=== PATIENT | female | born 1980 | race Caucasian/White ===

== ENCOUNTER → 2021-07-04 11:24 | Outpatient (BNVA) | payer BC, SELFPAY | PROVIDERS: Family Provider Nurse Practitioner Family; PCP Nurse Practitioner Family; Visit Provider Nurse Practitioner | DX: M19.031 Primary osteoarthritis, right wrist (principal) | CPT/HCPCS: 73110 ==

== ENCOUNTER → 2021-11-27 09:14 | Outpatient (BNVA) | payer MEDICAID, SELFPAY | PROVIDERS: Family Provider Nurse Practitioner Family; PCP Nurse Practitioner Family; Visit Provider Nurse Practitioner | DX: I10 Essential (primary) hypertension (principal); M19.90 Unspecified osteoarthritis, unspecified site; R91.1 Solitary pulmonary nodule; N28.9 Disorder of kidney and ureter, unspecified | CPT/HCPCS: 80053; 80061; 84443; 85025; 85651; 86140 ==

== ENCOUNTER → 2021-12-18 10:02 | Outpatient (BNVA) | payer MEDICAID, SELFPAY | PROVIDERS: Family Provider Nurse Practitioner Family; PCP Nurse Practitioner Family; Visit Provider Nurse Practitioner | DX: D64.9 Anemia, unspecified (principal); F41.8 Other specified anxiety disorders; G25.81 Restless legs syndrome; K21.9 Gastro-esophageal reflux disease without esophagitis; M54.16 Radiculopathy, lumbar region; I10 Essential (primary) hypertension | CPT/HCPCS: 82607; 83550; 85045 ==

== ENCOUNTER → 2022-01-10 09:26 | Outpatient (BNVA) | payer MEDICAID, SELFPAY | PROVIDERS: Family Provider Nurse Practitioner Family; PCP Nurse Practitioner Family; Visit Provider Urology | DX: N39.46 Mixed incontinence (principal); N28.9 Disorder of kidney and ureter, unspecified | CPT/HCPCS: 81003; 99203 ==

== ENCOUNTER → 2022-02-26 10:43 | Outpatient (BNVA) | payer MEDICAID, SELFPAY | PROVIDERS: Family Provider Nurse Practitioner Family; PCP Nurse Practitioner Family; Visit Provider Nurse Practitioner | DX: F41.8 Other specified anxiety disorders (principal); E61.1 Iron deficiency; K21.9 Gastro-esophageal reflux disease without esophagitis; G25.81 Restless legs syndrome; I10 Essential (primary) hypertension; M54.16 Radiculopathy, lumbar region; M19.90 Unspecified osteoarthritis, unspecified site; Z12.39 Encounter for other screening for malignant neoplasm of breast | CPT/HCPCS: 73630; 85651; 86140 ==

== ENCOUNTER 2022-03-14 11:20 | Outpatient (CLI) | payer MEDICAID, SELFPAY ==
--- NOTE | 2022-03-14 11:25 | MM_ITS ---
WS: [id number] Bilateral screening 3D tomosynthesis digital mammogram, 03/14/2022 Clinical Data: Z12.39 - Encounter for other screening for malignant neop... Comparison: None. Findings: The breast parenchymal pattern shows fat replacement. No spiculated masses or clustered calcification s are seen. There are no secondary signs of carcinoma. There is a mole marker on the right breast. MM/[place] [id number] Impression: 1. Negative bilateral mammogram no prior exam for review. 2. Recommend annual screening mammograms. BIRADS: 1-Negative FOLLOW UP: 1 Year Follow-up The CAD unloading checker was used.
== END 2022-03-14 11:21 | disposition home or self-care (01) ==
PROVIDERS: PCP Nurse Practitioner Family; Visit Provider Nurse Practitioner
DX: Z12.31 Encounter for screening mammogram for malignant neoplasm of breast (principal)
CPT/HCPCS: 77063; 77067

== ENCOUNTER 2022-03-18 13:16 | Outpatient (CLI) | payer MEDICAID, SELFPAY ==
--- NOTE | 2022-03-18 13:30 | CT_ITS ---
WS: [id number] CT CHEST WITH INTRAVENOUS CONTRAST HISTORY: R91.1 - Solitary pulmonary nodule TECHNIQUE: Contiguous 5 mm axial imaging performed on the thorax. Coronal and sagittal reformats are submitted. All CT scans at [facility] use at least one of these dose optimization techniques: automated exposure control; mA and/or kV adjustment per patient size (includes targeted exams where dose is matched to clinical indication); or iterative reconstruction. CONTRAST: Omnipaque 350; 95 mL IV. DLP: 699.56 mGy.cm COMPARISON: CT 11/15/2021 abdomen Lungs and central airway: Lungs are well-aerated. There is a single pulmonary nodule identified measu ring 5 mm. This nodule is noncalcified and abuts the major fissure. This is an intrapulmonary nodule which are typically benign. No additional nodule or mass. Pleura: Normal. No pleural effusion. Heart and pericardium: Normal size heart with no pericardial effusion. Mediastinum and prabha: No mediastinum or hilar adenopathy. Vessels: Normal size aortic and pulmonary artery. No coronary artery calcifications. Chest wall and lower neck: No soft tissue masses. Upper abdomen: Liver is moderately enlarged with hepatic steatosis. Spleen is incompletely visualized measures at least 12.8 cm in length. No adrenal mass. Osseous structures: Mild anterior wedging with Schmorl's node defect at T12. CT/CT chest w con* [id number] IMPRESSION: 1. LEFT perifissural nodule measures 5 mm. Thought to be a benign pulmonary ly mph node. 2. No additional nodule or mass. 3. Hepatic steatosis. 4. No adenopathy.
[2022-03-18] MEDS: iohexol 350 mg/mL 100 mL Btl IV (13:55)
== END 2022-03-18 13:17 | disposition home or self-care (01) ==
LOC: RAD 13:16
PROVIDERS: PCP Nurse Practitioner; Visit Provider Nurse Practitioner
DX: R91.1 Solitary pulmonary nodule (principal); N28.9 Disorder of kidney and ureter, unspecified; K76.0 Fatty (change of) liver, not elsewhere classified
CPT/HCPCS: 71260

== ENCOUNTER → 2022-04-04 11:55 | Outpatient (BNVA) | payer MEDICAID, SELFPAY | PROVIDERS: PCP Nurse Practitioner; Visit Provider Nurse Practitioner Family | DX: R10.9 Unspecified abdominal pain (principal); G89.29 Other chronic pain; K76.0 Fatty (change of) liver, not elsewhere classified; I10 Essential (primary) hypertension; M25.572 Pain in left ankle and joints of left foot; M19.072 Primary osteoarthritis, left ankle and foot; M25.472 Effusion, left ankle | CPT/HCPCS: 73610; 80048; 80076; 82607; 83036; 83735; 84443; 85025 ==

== ENCOUNTER → 2022-05-06 13:28 | Outpatient (BNVA) | payer MEDICAID, SELFPAY | PROVIDERS: PCP Nurse Practitioner; Visit Provider Podiatrist Foot & Ankle Surgery | DX: M72.2 Plantar fascial fibromatosis (principal); M21.6X1 Other acquired deformities of right foot; M21.6X2 Other acquired deformities of left foot; R60.9 Edema, unspecified | CPT/HCPCS: 73630 ==

== ENCOUNTER 2022-05-06 15:33 | Outpatient (CLI) | payer MEDICAID, SELFPAY | END 2022-05-06 15:34 | disposition home or self-care (01) | LOC: SPT 15:33 | PROVIDERS: PCP Nurse Practitioner; Visit Provider Podiatrist Foot & Ankle Surgery | DX: Z46.89 Encounter for fitting and adjustment of other specified devices (principal); M72.2 Plantar fascial fibromatosis | CPT/HCPCS: 97760; L4397 ==

== ENCOUNTER 2022-05-16 14:07 | Outpatient (CLI) | payer MEDICAID, SELFPAY ==
--- NOTE | 2022-05-16 14:21 | XR_ITS ---
WS: [email or web address] Exam: XR hip RT 2-3V wo/w pel* [id number] Date/Time of Exam: 05/16/2022 2:39 PM Reason For Exam: M25.551 - Pain in right hip Comparison 05/16/2019. No fracture or dislocation. Mild DJD of the acetabular rim. Normal soft tissues. XR/XR hip RT 2-3V wo/w pel* [id number] IMPRESSION: 1. Mild degenerative change of the acetabulum. 2. No fracture or other significant finding.
--- NOTE | 2022-05-16 14:21 | XR_ITS ---
WS: [email or web address] Exam: XR lumbar spine 2-3V* [id number] Date/Time of Exam: 05/16/2022 2:39 PM Reason For Exam: M54.50 - Low back pain, unspecified Comparison 11/24/2018. No acute fracture or dislocation. Old low-grade nondisplaced compression fractures of the upper plate of L2 and T12. Moderately advanced facet DJD at all levels. There is a grade 1 spondylolisthesis of L5 on S1 secondary to L5 pars defect. There is about 1 cm forward movement of L5. Degenerative disc c hange at L5-S1. DJD of the SI joints. Very slight degenerative retrolisthesis of L1 on L2. Mild spond ylosis. XR/XR lumbar spine 2-3V* [id number] IMPRESSION: 1. Old nondisplaced compression fractures at the upper plate of L2 and T12. 2. No acute fracture. 3. Grade 1 spondylolisthesis of L5 on S1 secondary to L5 pars defect. 4. Degenerative change at the L5-S1 disc. Facet DJD at all levels.
== END 2022-05-16 14:08 | disposition home or self-care (01) ==
LOC: RAD 14:09
PROVIDERS: PCP Nurse Practitioner; Visit Provider Nurse Practitioner Family
DX: M25.551 Pain in right hip (principal); S32.029A Unspecified fracture of second lumbar vertebra, initial encounter for closed fracture; S22.089A Unspecified fracture of T11-T12 vertebra, initial encounter for closed fracture; M43.15 Spondylolisthesis, thoracolumbar region; X58.XXXA Exposure to other specified factors, initial encounter
CPT/HCPCS: 72100; 73502

== ENCOUNTER 2022-05-20 09:19 | Outpatient (CLI) | payer MEDICAID, SELFPAY ==
--- NOTE | 2022-05-20 09:15 | US_ITS ---
WS: [email or web address] RENAL ULTRASOUND HISTORY: Renal Lesion COMPARISON: CT 11/17/2021 TECHNIQUE: 2-D and color Doppler imaging of the kidney submitted. Limited quality by body habitus. Right kidney: 11.8 cm x 6.8 cm x 6.1 cm. Normal echogenicity with no hydronephrosis or mass. Left kidney: 12.7 cm x 6.4 cm x 6.0 cm. Normal echogenicity with no hydronephrosis or mass. Previously described mass in the lower pole with calcification is not identified by ultrasound. Aorta: Not visualized. Urinary Bladder: Minimally distended. US/US renal BI* [id number] IMPRESSION: 1. No hydronephrosis or renal mass identified. 2. Previously described low-attenuation mass with peripheral calcification on the CT from 11/17/2021 is not identified by ultrasound. Probably due to body hab itus. Recommend follow-up renal mass CT protocol or MRI with and without contra st.
== END 2022-05-20 09:20 | disposition home or self-care (01) ==
PROVIDERS: PCP Nurse Practitioner; Visit Provider Urology
DX: N28.9 Disorder of kidney and ureter, unspecified (principal)
CPT/HCPCS: 76770

== ENCOUNTER 2022-05-20 13:16 | Outpatient (CLI) | payer MEDICAID, SELFPAY ==
[2022-05-20 13:48] LABS: Basophils # 0.1 10^3/uL (0.0-0.1); Basophils % 0.5 %; Eosinophils % 0.1 %; Hemoglobin 10.9 g/dL (11.5-15.3); Lymphocytes % 9.5 %; Mean Corpuscular HGB Conc 29.5 g/dL (30.0-36.0); Mean Corpuscular Hemoglobin 22.8 pg (28.0-34.0); Mean Corpuscular Volume 77.2 fl (81-99); Mean Platelet Volume 10.5 fL (7.4-10.4); Monocytes # 0.2 10^3/uL (0.2-0.9); Monocytes % 2.2 %; Neutrophils # 9.09 10^3/uL (1.8-7.7); Neutrophils % 86.7 %; Nucleated Red Blood Cells % 0 %; Platelet Count 376 10^3/cmm (130-400); Red Blood Count 4.79 10^6/uL (4.1-5.3); Red Cell Distribution Width 16.2 % (12.1-15.1); White Blood Count 10.5 10^3/uL (4.0-10.0)
[2022-05-20 13:57] LABS: Erythrocyte Sedimentation Rate 23 mm/hr (0-15)
[2022-05-20 14:06] LABS: Alanine Aminotransferase 10 U/L (0-33); Albumin Level 3.8 g/dL (3.5-5.2); Alkaline Phosphatase 115 U/L (35-105); Anion Gap 12.5 (5-19); Aspartate Amino Transferase 9 U/L (0-32); Blood Urea Nitrogen 12 mg/dL (6-20); C Reactive Protein 10.7 mg/L (0.0-4.9); Calcium 9.1 mg/dL (8.5-10.5); Carbon Dioxide 29 mmol/L (22-29); Chloride 101 mmol/L (98-107); Globulin 3.7 g/dL (1.3-4.6); Glomerular Filtration Rate 108.6 mL/min (90-130); Glucose 137 mg/dL (65-115); Osmolality Calculated 288 mOsm/kg (285-295); Potassium 4.5 mmol/L (3.5-5.1); Sodium 138 mmol/L (136-145); Total Bilirubin 0.4 mg/dL (0.15-1.2); Total Protein 7.5 g/dL (6.6-8.7)
== END 2022-05-20 13:17 | disposition home or self-care (01) ==
LOC: LAB 13:25
PROVIDERS: PCP Nurse Practitioner; Visit Provider Internal Medicine
DX: R79.82 Elevated C-reactive protein (CRP) (principal); Z79.899 Other long term (current) drug therapy
CPT/HCPCS: 36415; 80053; 85025; 85651; 86140

== ENCOUNTER → 2022-07-03 09:36 | Outpatient (BNVA) | payer MEDICAID, SELFPAY | PROVIDERS: PCP Nurse Practitioner; Referring Provider Nurse Practitioner; Visit Provider Physician Assistant | DX: M54.50 Low back pain, unspecified (principal) | CPT/HCPCS: 72120 ==

== ENCOUNTER 2022-07-28 14:11 | Outpatient (CLI) | payer MEDICAID, SELFPAY ==
--- NOTE | 2022-07-28 16:00 | MR_ITS ---
WS: [email or web address] MRI LUMBAR SPINE NONCONTRAST TECHNIQUE: Sagittal T1, T2 and STIR imaging. Axial T1 and T2 imaging. CLINICAL INFORMATION: M54.50 - Low back pain, unspecified COMPARISON: None. FINDINGS: Mild lumbar curve. Grade 1 anterolisthesis L5 on S1 measuring 7 mm.Chronic spondylolysis L5-S1. L1-L2: Mild annular bulging. Mild facet arthropathy. Mild RIGHT and no significant LEFT foraminal dave rowing. L2-L3: Mild annular bulging with mild central canal stenosis. Narrowing of the subarticular recess bi laterally. Moderate facet arthropathy. Mild RIGHT and no significant LEFT foraminal narrowing. L3-L4: Mild annular bulging with moderate central canal stenosis. Impingement traversing L4 nerve campbell ts bilaterally. Moderate to advanced facet arthropathy. Moderate RIGHT and mild LEFT foraminal narrow ing. L4-L5: Annular bulging with a small central protrusion. Moderate to severe central canal stenosis. Im pingement traversing L5 nerve roots bilaterally. Moderate facet arthropathy. Mild LEFT and no signifi cant RIGHT foraminal narrowing. L5-S1: Grade 1 anterolisthesis with spondylolysis. Mild disc bulging with osteophytic ridging. Modera te bilateral foraminal narrowing. Moderate facet arthropathy. Slight impingement on the traversing RI GHT S1 nerve root. Visualized pelvic bony structures: Normal. Paravertebral soft tissues: Normal. MR/MR lumbar spine wo con* [id number] IMPRESSION: 1. Mild lumbar curve. No acute compression. Grade 1 anterolisthesis L5 on S1 w ith chronic spondylolysis. 2. Moderate central canal stenosis L3-L4 and moderate to severe central canal stenosis L4-L5 with a small central protrusion L4-L5. Impingement traversing L5 nerve roots. 3. Disc osteophyte complex L5-S1 impinges the traversing RIGHT S1 nerve root i n the subarticular recess. Moderate bilateral foraminal narrowing at this level . 4. Mild central canal stenosis L2-L3. 5. Small foraminal protrusions L3-L4 with moderate RIGHT and mild LEFT foramin al narrowing. 6. Moderate facet arthropathy L2-L5.
== END 2022-07-28 14:12 | disposition home or self-care (01) ==
LOC: RAD 14:12
PROVIDERS: PCP Nurse Practitioner; Visit Provider Nurse Practitioner Family
DX: G89.29 Other chronic pain (principal); M54.50 Low back pain, unspecified; Z87.81 Personal history of (healed) traumatic fracture; Z09 Encounter for follow-up examination after completed treatment for conditions other than malignant neoplasm
CPT/HCPCS: 72148

== ENCOUNTER 2022-08-04 06:47 | Outpatient (CLI) | payer MEDICAID, SELFPAY ==
--- NOTE | 2022-08-04 07:15 | US_ITS ---
WS: [email or web address] Complete ABDOMINAL ULTRASOUND HISTORY: R10.9 - Unspecified abdominal pain COMPARISON: No similar studies. Liver: 16.5 cm in length. Diffuse mild coarse echotexture. No mass or bile duct dilatation. The entir e liver is not very well visualized due to attenuation. Portal Vein: Normal hepatopetal flow with monophasic waveform. Gallbladder: Normally distended with no gallstones, wall thickening or pericholecystic fluid. Pancreas: Obscured by bowel gas and body habitus. CBD: 0.7 cm. Right kidney: 12.4 cm x 6.6 cm x 5.7 cm. No mass, cortical thickening or hydronephrosis. Left kidney: 12.2 cm x 5.4 cm x 5.9 cm. Normal size kidney. Variable echogenicity within the lower p ole. Suspect calcification without shadowing. This corresponds to there is no solid mass identified. The area of an indeterminate lesion described on 11/17/2021 with calcification. Spleen: Top normal size measuring 13.2 cm in length. Abdominal aorta and IVC are within normal limits. No ascites. US/US abdomen complete* [id number] IMPRESSION: 1. Normal gallbladder. 2. Possible calcification lower pole RIGHT kidney. Previous the described mass with calcification noted on a prior CT from 11/15/2021 is still not very well v isualized by ultrasound. Consider further evaluation with renal CT protocol or renal MRI. 3. Hepatic steatosis.
== END 2022-08-04 06:48 | disposition home or self-care (01) ==
LOC: RAD 06:49
PROVIDERS: PCP Nurse Practitioner; Visit Provider Nurse Practitioner Family
DX: R10.9 Unspecified abdominal pain (principal); G89.29 Other chronic pain; K76.0 Fatty (change of) liver, not elsewhere classified
CPT/HCPCS: 76700

== ENCOUNTER 2022-08-06 06:58 | Outpatient (CLI) | payer MEDICAID, SELFPAY | END 2022-08-06 06:59 | disposition home or self-care (01) | LOC: RT 06:59 | PROVIDERS: PCP Nurse Practitioner; Visit Provider Internal Medicine Pulmonary Disease | DX: R91.1 Solitary pulmonary nodule (principal); J45.909 Unspecified asthma, uncomplicated | CPT/HCPCS: 94010; 94726; 94729 ==

== ENCOUNTER → 2022-08-11 16:56 | Outpatient (BNVA) | payer MEDICAID, SELFPAY | PROVIDERS: PCP Nurse Practitioner; Visit Provider Nurse Practitioner Family | DX: I10 Essential (primary) hypertension (principal); K76.0 Fatty (change of) liver, not elsewhere classified; F41.8 Other specified anxiety disorders; R79.82 Elevated C-reactive protein (CRP); R10.9 Unspecified abdominal pain; G89.29 Other chronic pain; R73.9 Hyperglycemia, unspecified; Z68.42 Body mass index [BMI] 45.0-49.9, adult; J45.909 Unspecified asthma, uncomplicated; U09.9 Post COVID-19 condition, unspecified; T78.40XA Allergy, unspecified, initial encounter; R91.1 Solitary pulmonary nodule | CPT/HCPCS: 80053; 80061; 82088; 82533; 83036; 83615; 84443 ==

== ENCOUNTER → 2022-09-09 15:32 | Outpatient (BNVA) | payer MEDICAID, SELFPAY | PROVIDERS: PCP Nurse Practitioner; Visit Provider Nurse Practitioner Family | DX: M25.561 Pain in right knee (principal); M79.604 Pain in right leg; W19.XXXA Unspecified fall, initial encounter | CPT/HCPCS: 73562; 73590 ==

== ENCOUNTER 2022-09-30 08:51 | Outpatient (CLI) | payer MEDICAID, SELFPAY ==
--- NOTE | 2022-09-30 09:15 | USCV_ITS ---
EspinosaSeptember Age: 42 Gender: F : 1980 Exam Date: 09/30/2022 09:11 Ordering Phys: Vreónica Adkins MD ([email or web address]) Technologist: [place] [facility] [place]: carotid occlusion Risk Factors: Previous Vascular Surgery: Right Brachial BP: / Left Brachial BP: / Right Left Velocity (cm/s) Spectral Plaque Velocity (cm/s) Spectral Plaque Syst/Diast Broadening Syst/Diast Broadening 102.50/25.40 Prox CCA 83.50 / 27.00 82.50/ 23.40 Mid CCA 89.60 / 25.10 76.90/ 25.30 Distal CCA 79.10 / 25.00 55.20/ 16.70 Prox ICA 86.90 / 25.60 52.30/ 19.60 Mid ICA 66.50 / 26.60 79.10/ 32.40 Distal ICA 82.80 / 35.30 84.40 ECA 103.20 0.77 ICA/CCA 0.97 Antegrade Vertebral Antegrade 59.00/ 28.00 cm/s 52.60/ 22.30 cm/s Tri Subclavian Tri 144.5 111.4 0 0 FINDINGS Comparison: none available. No significant elevation of systolic or diastolic velocities. Waveforms are normal. No significant amount of calcified plaque or intimal thickening identified. Antegrade vertebral arteries. CONCLUSIONS Normal carotid doppler ultrasound. Dr. Tess Bentley DO (Electronically Signed) Final Date: 30 September 2022 10:00 S
== END 2022-09-30 08:52 | disposition home or self-care (01) ==
LOC: RAD 08:54
PROVIDERS: PCP Nurse Practitioner Family; Visit Provider Internal Medicine Cardiovascular Disease
DX: I65.29 Occlusion and stenosis of unspecified carotid artery (principal)
CPT/HCPCS: 36415; 73560; 73565; 80048; 83880; 93880

== ENCOUNTER 2022-09-30 14:33 | Outpatient (CLI) | payer MEDICAID, SELFPAY | END 2022-09-30 14:34 | disposition home or self-care (01) | LOC: SPT 14:33 | PROVIDERS: PCP Nurse Practitioner Family; Visit Provider Nurse Practitioner Family | DX: Z46.89 Encounter for fitting and adjustment of other specified devices (principal); M25.561 Pain in right knee | CPT/HCPCS: 97760; L1812 ==

== ENCOUNTER 2022-10-06 08:23 | Outpatient (CLI) | payer MEDICAID, SELFPAY ==
--- NOTE | 2022-10-06 08:00 | USCV_ITS ---
Espinosaseptember Age: 42 Gender: F : 1980 Exam Date: 10/06/2022 09:04 Ordering Phys: Verónica Adkins MD ([email or web address]) Technologist: Jordan Culver Exam Location: [facility] [place] Indication: sob, leg swelling BP: 158 / 74 HR: 75 Rhythm: Sinus Technical Quality: Adequate MEASUREMENTS (Male / Female) Normal Values 2D ECHO LV Diastolic Diameter PLAX 5.1 cm 4.2 - 5.9 / 3.9 - 5.3 cm LV Systolic Diameter PLAX 3.5 cm IVS Diastolic Thickness 1.0 cm 0.6 - 1.0 / 0.6 - 0.9 cm IVS Systolic Thickness 1.3 cm LVPW Diastolic Thickness 1.2 cm 0.6 - 1.0 / 0.6 - 0.9 cm LVPW Systolic Thickness 1.7 cm LVOT Diameter 2.1 cm LV Ejection Fraction 2D Teich 57.1 % LV Ejection Fraction MOD 2C 65.4 % LV Ejection Fraction 2C AL 66.3 % LA Diameter 3.5 cm LA Width 3.2 cm LA Height 5.3 cm RA Width 3.7 cm RA Height 4.3 cm Aorta at Sinotubular Diameter 2.4 cm IVC Diameter 1.9 cm M-MODE Aortic Annulus Diameter 2.8 cm LA Ao Ratio MM 1.2 MV E Point Septal Separation 0.8 cm DOPPLER AV Peak Velocity 181.3 cm/s LVOT Peak Velocity 144.0 cm/s AV Area Cont Eq vti 2.8 cm squared AV Area Cont Eq pk 2.8 cm squared MV Peak Velocity 101.0 cm/s MV Area PHT 3.3 cm squared Mitral E to A Ratio 1.3 MV E' Velocity 52.0 cm/s Mitral E to MV E' Ratio 7.5 Mitral E to LV E' Lateral Ratio 6.3 Mitral E to LV E' Septal Ratio 9.4 TR Peak Velocity 473.5 cm/s TR Peak Gradient 89.7 mmHg TR Mean Velocity 356.3 cm/s TR Mean Gradient 53.9 mmHg TR Velocity Time Integral 117.3 cm Right Atrial Pressure 3.0 mmHg Pulmonary Artery Systolic Pressu 92.7 mmHg PV Peak Velocity 148.0 cm/s RV Acceleration Time 0.1 s RV Ejection Time 0.3 s RV AcT/ET 0.2 FINDINGS Left Ventricle Normal left ventricular size and systolic function, EF 67 %. No regional wall motion abnormalities. Mild left ventricular hypertrophy. Right Ventricle The right ventricle is normal in size and function. Right Atrium The right atrium is normal in size. Left Atrium The left atrium is normal in size. Mitral Valve Trace mitral valve regurgitation. Aortic Valve No gross abnormalities noted Tricuspid Valve Trace tricuspid valve regurgitation. PA pressure could not be calculated because of the poor Doppler signals Pulmonic Valve No gross abnormalities noted Pericardium Normal pericardium without effusion. Aorta Normal ascending aorta dimension. IVC Normal inferior vena cava. CONCLUSIONS Normal left ventricular size and systolic function, EF 67 %. No regional wall motion abnormalities. Trace mitral valve regurgitation. Trace tricuspid valve regurgitation. Mild left ventricular hypertrophy. PA pressure could not be calculated because of the poor Doppler signals. There is no pericardial effusion. There are no intracardiac masses. No similar previous studies are available for comparison Dr Verónica Adkins MD [facility] (Electronically Signed) Final Date: 09 October 2022 19:51 S
== END 2022-10-06 08:24 | disposition home or self-care (01) ==
PROVIDERS: PCP Nurse Practitioner Family; Visit Provider Internal Medicine Cardiovascular Disease
DX: R06.09 Other forms of dyspnea (principal); I51.7 Cardiomegaly
CPT/HCPCS: 93306

== ENCOUNTER 2022-10-21 11:45 | Outpatient (CLI) | payer MEDICAID, SELFPAY ==
--- NOTE | 2022-10-21 11:45 | MR_ITS ---
WS: [email or web address] MRI RIGHT KNEE HISTORY: Right knee pain chronic COMPARISON: Radiographs 09/30/2022 Anterior cruciate ligament: Ligament is intact but very thin. Posterior cruciate ligament: Intact. Medial collateral ligament: MCL is displaced from the joint line by the extruded meniscus. Small amou nt of adjacent edema but no tear. Posterior lateral corner structures: Intact. Medial menisci: Blunting and tear near the meniscal free edge. Abnormal signal predominantly along th e superior articular surface. Lateral meniscus: Intact. Normal signal, size and shape. Extensor mechanism: Distal quadriceps tendon and patellar tendons are intact. Fluid and soft tissue: Moderate to large joint effusion. There is soft tissue edema surrounding the k nee. Very tiny amount of fluid distending Enrique's cyst. Osseous and articular structures: Patellofemoral compartment: Marked narrowing of the patellofemoral joint space. There is a bipartite patella. There is slight lateral subluxation of the patella with enthesopathy. Moderate chondromalaci a. Medial compartment: Moderate narrowing of the medial compartment. Diffuse chondromalacia greatest inv olving the weightbearing surface of the femoral condyle. Small marginal osteophytes. Lateral compartment: Moderate narrowing lateral compartment with diffuse chondromalacia. There is a l arge amount of edema in the lateral femoral condyle extending into the metaphysis. No fracture. Charlene nal osteophytes from the tibial plateau and femoral condyle. MR/MR knee RT wo con* [id number] IMPRESSION: 1. Tricompartment advanced changes of osteoarthritis. More than expected for t his patient's age. 2. Tricompartment chondromalacia with joint space narrowing. 3. Large amount of marrow edema in the lateral femoral condyle extending into the metaphysis. 4. Moderate to large joint effusion. 5. Bipartite patella. Lateral subluxation of patella. 6. Suspect tear involving the posterior horn medial meniscus.
== END 2022-10-21 11:46 | disposition home or self-care (01) ==
LOC: RAD 12-23 09:09
PROVIDERS: PCP Nurse Practitioner Family; Visit Provider Nurse Practitioner Family
DX: M17.11 Unilateral primary osteoarthritis, right knee (principal); M25.461 Effusion, right knee; M25.761 Osteophyte, right knee; M94.261 Chondromalacia, right knee; Q74.1 Congenital malformation of knee; G89.29 Other chronic pain; M25.561 Pain in right knee
CPT/HCPCS: 73721

== ENCOUNTER 2022-11-13 09:30 | Outpatient (CLI) | payer MEDICAID, SELFPAY ==
[2022-11-13 09:58] VITALS: BMI 47.7
--- NOTE | 2022-11-13 10:02 | ECG_ITS ---
[facility] Test Date: 2022-11-13 Pat Name: Vilma Letcher Department: Room: Gender: Female [employer] Furnace Operator: Nayana Raymond : 1980 Requested By: Verónica Adkins Order Number: [id number] Farheen MD: Primo Cool M.D. Interpretive Statements NAME OF STUDY: LEXISCAN SESTAMIBI STRESS TEST INDICATION: [Chest Pain, ] Procedure: At the baseline, the blood pressure was 152/93 mmHg with a heart rate of 80 bpm. The electrocardiogram showed normal sinus rhythm, normal axis with normal ST and T's. The Lexiscan was infused over a period of 20 seconds. A total of 0.4 mg of Lexiscan was infused. The stress phase was continued for a total of 5 minutes. Heart rate was at the end of stress phase was 90 bpm and a blood pressure of 155/95 mmHg. The EKG at the peak infusion revealed normal sinus rhythm with no significant ST-T wave changes. Sestamibi was injected 20 seconds after the Lexiscan infusion. Blood pressure at the end of recovery phase was 156/99 mmHg with a heart rate of 88 bpm. Conclusion: 1. Normal EKG response to Lexiscan infusion 2. No Lexiscan induced chest pain or cardiac arrhythmia. 3. Normal blood pressure and heart rate response. 4. Sestamibi/sestamibi perfusion scan pending; see separate report. Electronically Signed On 11-15-2022 21:33:23 CDT by Primo Cool M.D. [id number]
--- NOTE | 2022-11-13 10:04 | NMCV_ITS ---
NM justen perf SPECT r/s* [id number] September Age: 42 Gender: F : 1980 Exam Date: 11/13/2022 11:04 Ordering Phys: Verónica Adkins MD ([email or web address]) Technologist: TINY Santiago Exam Location: [facility] Indications: HYPERTENSION STRESS TEST Please see separate stress test report [facility] for full findings IMAGE PROTOCOL Rest/Stress 1 Lexiscan Day Radiopharmaceutical Dose (mCi) Administration Site Administered by Rest: Tc-99m 11.0 IV TINY Cavanaugh Sestamibi Stress:Tc-99m 33.0 IV TINY Cavanaugh Sestamibi Rest: 13-Nov-2022 60 Discovery 630 Stress: 13-Nov-2022 30 Discovery 630 0.4mg Lexiscan. Images obtained in supine and prone position. SPECT RESULTS Technical Quality: Excellent Raw Data Analysis: Normal Image Corrections: No attenuation or motion correction applied Summed Stress Score: 2 Summed Rest Score: 2 Summed Difference Score: 2 PERFUSION FINDINGS Small area of slightly decreased tracer uptake in the apical inferior and LV apex. Some relative drills noted in this region however the polar maps did not reveal any significant reversibility FUNCTIONAL RESULTS (calculated via Gated SPECT) Stress Image LV EF (%): 62 Stress EDV (mL):123 TID: 1.01 Stress ESV (mL):47 FUNCTIONAL FINDINGS: Segmental wall motion analysis revealing no gross wall motion abnormalities IMPRESSIONS 1. Myocardial perfusion imaging revealing small area of decreased tracer uptake in the apical inferior and LV apex with some reversibility suggesting ischemia in the distribution of the right coronary artery. However because of the inconsistency with the polar map, the reliability is somewhat compromised 2. Normal LV ejection fraction 62%. 3. LV wall motion analysis revealing no gross wall motion abnormalities. 4. Normal LV volume . No similar previous studies are available for comparison Dr Verónica Adkins MD [facility] (Electronically Signed) Final Date: 14 Nov 2022 10:32 S
[2022-11-13] MEDS: regadenoson 0.4 Mg/5 ml Syringe IVP (11:42)
[2022-11-13 12:28] VITALS: BP 156/99; PULSE 88
== END 2022-11-13 09:31 | disposition home or self-care (01) ==
LOC: CDL 09:31
PROVIDERS: PCP Nurse Practitioner Family; Visit Provider Internal Medicine Cardiovascular Disease
DX: I77.1 Stricture of artery (principal)
CPT/HCPCS: 36415; 78452; 93017; 96374; A9500; J2785

== ENCOUNTER 2022-12-02 13:16 | Outpatient (CLI) | payer MEDICAID, SELFPAY ==
--- NOTE | 2022-12-02 13:23 | XRR_ITS ---
PROCEDURE INFORMATION: Exam: XR Left Hip Exam date and time: 12/02/2022 1:30 PM Age: 42 years old Clinical indication: Hip pain; Left hip; Additional info: Left hip pain TECHNIQUE: Imaging protocol: Radiologic exam of the left hip. Views: 2 or 3 views hip with pelvis when performed. COMPARISON: CT abdomen pelvis w con* [id number] 11/17/2021 4:46 PM FINDINGS: Bones/joints: Unremarkable. No acute fracture. Soft tissues: Unremarkable. XR/XR hip LT 2-3V wo/w pel* [id number] IMPRESSION: No acute findings.
== END 2022-12-02 13:17 | disposition home or self-care (01) ==
LOC: RAD 13:17
PROVIDERS: PCP Nurse Practitioner Family; Visit Provider Nurse Practitioner Family
DX: M16.12 Unilateral primary osteoarthritis, left hip (principal)
CPT/HCPCS: 73502

== ENCOUNTER 2022-12-23 12:12 | Outpatient (CLI) | payer MEDICAID, SELFPAY ==
--- NOTE | 2022-12-23 12:30 | USCV_ITS ---
JesúsSeptember Age: 42 Gender: F : 1980 Exam Date: 12/23/2022 13:16 Ordering Phys: Tara Mistry Technologist: CT [place] [facility] [place]: HISTORY: PROCEDURES: FINDINGS: The veins were found to be easily compressible with spontaneous blood flow. Non pulsatile flow pattern. No significant reflux were noted either in the deep or superficial veins CONCLUSIONS No evidence of DVT in the above-mentioned identifiable veins. No significant venous reflux in the veins tested above Dr Verónica Adkins MD [facility] (Electronically Signed) Final Date: 26 December 2022 14:02 S
== END 2022-12-23 12:13 | disposition home or self-care (01) ==
LOC: RAD 12:15
PROVIDERS: PCP Nurse Practitioner Family; Visit Provider Nurse Practitioner Family
DX: R60.9 Edema, unspecified (principal)
CPT/HCPCS: 93970

== ENCOUNTER → 2023-01-02 11:56 | Outpatient (BNVA) | payer MEDICAID, SELFPAY | PROVIDERS: PCP Nurse Practitioner Family; Visit Provider Nurse Practitioner Family | DX: E78.5 Hyperlipidemia, unspecified (principal); I10 Essential (primary) hypertension; F41.8 Other specified anxiety disorders; I27.20 Pulmonary hypertension, unspecified; R73.9 Hyperglycemia, unspecified; J30.2 Other seasonal allergic rhinitis; Z68.42 Body mass index [BMI] 45.0-49.9, adult; K21.9 Gastro-esophageal reflux disease without esophagitis; G25.81 Restless legs syndrome; R60.9 Edema, unspecified; M62.838 Other muscle spasm; E88.81 Metabolic syndrome and other insulin resistance | CPT/HCPCS: 80053; 80061; 83036 ==

== ENCOUNTER 2023-01-12 22:03 | Emergency (ER) | payer MEDICAID, SELFPAY ==
[2023-01-12 22:06] VITALS: BP 147/88; PULSE 100; RESP 14; TEMP 37.2; O2SAT 97; BMI 46.7
--- NOTE | 2023-01-12 22:16 | ED_ITS ---
HPI - General Adult General: Chief complaint: Headache Stated complaint: Cant Pee and Poop Time Seen by Provider: 01/12/23 22:13 History of Present Illness: Patient was brought in today for concerns of headache along with difficulty with urination and bowel movements. Patient also reported excessive drowsiness but since being placed on levocetirizine and Claritin-D for allergy symptoms. Review of patient's medications she also takes hydroxyzine routinely for anxiety. Patient appears nontoxic. Patient does take antihypertensives, medication for inflammatory arthritis, high cholesterol, mental health, GERD and chronic lung disease. Patient appears in mild to moderate pain. Associated symptoms: Reports headache(s) and nausea Review of Systems Const: Reports: fatigue ENMT: Reports: nasal discharge GI: Reports: nausea and constipation : Reports: difficulty voiding and urinary frequency Neuro: Reports: headache(s) PFSH ED PFSH: Medical History Acid reflux Anxiety with depression BMI 45.0-49.9, adult Chronic inflammatory arthritis Complex renal cyst Essential hypertension Lumbago Osteoarthritis Radiculopathy, lumbar region Restless leg Surgical History History of tubal ligation Family History Father , AT AGE 70 Cancer Chronic kidney disease (CKD) Diabetes Hypertension Mother Diabetes Lung disease Brother COPD (chronic obstructive pulmonary disease) Denies family history of Suicide Stroke Social History Smoking and tobacco status: never smoked Second hand smoke exposure: No Smoking risk assessment/counseling performed?: No Alcohol intake: current Alcohol intake frequency: holidays/special occasions only Desire information about alcohol rehabilitation?: No Counseling given: No Substance/Drug Use: unknown Desire information about substance/drug rehabilitation?: No Counseling given: No Adopted: No Caregiver/support person: No Lives independently: Yes Household members: none Housing: House Marital status: Number of children: 3 Highest education level completed: Some College, No Degree service: No Current occupational status: unemployed and disabled Pets and animals: Yes Do you think of yourself as: Straight/Heterosexual Current gender identity: Female Physical Exam Const: COMMON NORMALS: alert HENMT: COMMON NORMALS: normocephalic HEAD & SCALP: normocephalic NOSE: No nasal discharge present MOUTH: Normal oral and palatal mucosa present Neck/C-Spine: COMMON NORMALS: full ROM Resp: COMMON NORMALS: normal respiratory effort and clear to auscultation bilaterally AUSCULTATION: clear to auscultation bilaterally Cardio: COMMON NORMALS: regular rate and regular rhythm RATE: regular rate RHYTHM: regular rhythm GI: COMMON NORMALS: non-tender AUSCULTATION: Yes normoactive bowel sounds Extremity: COMMON NORMALS: no pedal edema Neuro: SENSORIUM/ORIENTATION: Yes alert Skin: COMMON NORMALS: turgor normal GENERAL SKIN EXAM: turgor normal Course Vital Signs: Vital signs: Vital Signs Temperature 98.9 F 01/12/23 22:06 Pulse Rate 100 01/12/23 22:06 Respiratory Rate 14 01/12/23 22:06 Blood Pressure 147/88 01/12/23 22:06 Pulse Oximetry 97 01/12/23 22:06 Oxygen Delivery Me thod Room Air 01/12/23 22:06 [facility] - General Adult Medical Decision Making 42-year-old female comes in today for complaints of excessive drowsiness, urinary difficulty, and constipation. On exam abdomen soft and nontender. Bowel sounds are positive. Patient does have some low back paraspinous muscle tenderness. Vital signs are normal. Differential diagnosis includes bowel obs truction, adverse drug effect, urinary tract infection, pneumonia, anemia, electrolyte imbalance. CBC was unremarkable, CMP was unremarkable. Chest x-ray and abdominal films noted no significant abnormality. Urinalysis had a large amount of white blood cells and positive nitrates. Patient was treated for headache with Reglan and Toradol with good relief. Patient be treated for urinary tract infection with Rocephin 1 g, and cephalexin 500 mg twice daily for 7 days. Recommending holding hydroxyzine while using cetirizine and levocetirizine for allergy symptoms. Strongly recommended only using hydroxyzine for breakthrough anxiety. Patient and family both reported understanding of care plan and need for follow-up or return to the ER. Lab Data 01/12/23 22:41 01/12/23 22:41 Radiology Impressions Chest/Abdomen X-ray 01/12/23 22:26 IMPRESSION: No acute findings. Laboratory Results WBC 10.0 10^3/uL (4.0-10.0) 01/12/23 22:41 RBC 4.80 10^6/uL (4.1-5.3) 01/12/23 22:41 Hgb 11.7 g/dL (11.5-15.3) 01/12/23 22:41 Hct 38.9 % (37.0-47.0) 01/12/23 22:41 MCV 81.0 fl (81-99) 01/12/23 22:41 MCH 24.4 pg (28.0-34.0) L 01/12/23 22:41 MCHC 30.1 g/dL (30.0-36.0) 01/12/23 22:41 RDW 16.6 % (12.1-15.1) H 01/12/23 22:41 Plt Count 242 10^3/cmm (130-400) 01/12/23 22:41 MPV 11.3 fL (7.4-10.4) H 01/12/23 22:41 Neut % (Auto) 82.7 % 01/12/23 22:41 Lymph % (Auto) 10.2 % 01/12/23 22:41 [place] % (Auto) 6.0 % 01/12/23 22:41 Eos % (Auto) 0.3 % 01/12/23 22:41 Baso % (Auto) 0.4 % 01/12/23 22:41 Neut # (Auto) 8.27 10^3/uL (1.8-7.7) H 01/12/23 22:41 Lymph # (Auto) 1.0 10^3/uL (0.8-4.8) 01/12/23 22:41 [place] # (Auto) 0.6 10^3/uL (0.2-0.9) 01/12/23 22:41 Eos # (Auto) 0.0 10^3/uL (0.0-0.8) 01/12/23 22:41 Baso # (Auto) 0.0 10^3/uL (0.0-0.1) 01/12/23 22:41 Nucleated RBC % (auto) 0 % 01/12/23 22:41 Nucleated RBCs # 0.0 /100WBC 01/12/23 22:41 Sodium 136 mmol/L (136-145) 01/12/23 22:41 Potassium 3.6 mmol/L (3.5-5.1) 01/12/23 22:41 Chloride 99 mmol/L (98-107) 01/12/23 22:41 Carbon Dioxide 29 mmol/L (22-29) 01/12/23 22:41 Anion Gap 11.6 (5-19) 01/12/23 22:41 BUN 7 mg/dL (6-20) 01/12/23 22:41 Creatinine 0.5 mg/dL (0.5-0.9) 01/12/23 22:41 GFR Calculation 134.0 mL/min (90-130) H 01/12/23 22:41 Glucose 106 mg/dL (65-115) 01/12/23 22:41 Calculated Osmolality 280 mOsm/kg (285-295) L 01/12/23 22:41 Calcium 8.5 mg/dL (8.5-10.5) 01/12/23 22:41 Total Bilirubin 0.3 mg/dL (0.15-1.2) 01/12/23 22:41 AST 10 U/L (0-32) 01/12/23 22:41 ALT 11 U/L (0-33) 01/12/23 22:41 Alkaline Phosphatase 94 U/L (35-105) 01/12/23 22:41 Total Protein 6.8 g/dL (6.6-8.7) 01/12/23 22:41 Albumin 3.6 g/dL (3.5-5.2) 01/12/23 22:41 Globulin 3.2 g/dL (1.3-4.6) 01/12/23 22:41 Lipase 17 U/L (13-60) 01/12/23 22:41 HCG, Qual Negative (Negative) 01/12/23 22:41 Urine Color Yellow (Yellow) 01/12/23 23:40 Urine Appearance Cloudy (CLEAR) A 01/12/23 23:40 Urine pH 6 (5-7) 01/12/23 23:40 Ur Specific [place] 1.010 (1.005-1.030) 01/12/23 23:40 Urine Protein 2+ (Negative) H 01/12/23 23:40 Urine Glucose (UA) Norm (Normal) 01/12/23 23:40 Urine Ketones Negative (Negative) 01/12/23 23:40 Urine Blood 3+ (Negative) H 01/12/23 23:40 Urine Nitrate Positive (Negative) H 01/12/23 23:40 Urine Bilirubin Neg (Negative) 01/12/23 23:40 Urine Urobilinogen 1 mg/dL (Negative) H 01/12/23 23:40 Ur Leukocyte Esterase 2+ (Negative) H 01/12/23 23:40 Urine RBC 40-50 /hpf (0-2) H 01/12/23 23:40 Urine WBC >100 /hpf (0-5) H 01/12/23 23:40 Ur Squamous Epith Cells 0-4 /hpf (0-5) H 01/12/23 23:40 Amorphous Sediment Not Reportable 01/12/23 23:40 Urine Bacteria 3+ /hpf (NONE) H 01/12/23 23:40 Discharge Plan Discharge Patient Disposition: Home Clinical Impression: UTI (urinary tract infection) due to Enterococcus Condition: Stable Prescriptions: New cephalexin 500 mg capsule 500 mg PO BID 7 Days Qty: 14 0RF No Action Saccharomyces boulardii [Daily Probiotic (S. boulardii)] 250 mg capsule 250 mg PO BID prenat.vits,briseida,eof-suin-wnomi Tablet 1 tab PO DAILY 90 Days Qty: 90 0RF ketorolac 10 mg tablet 10 mg PO QID PRN (Reason: pain) 5 Days Qty: 20 0RF Claritin-D 12 Hour 5-120 mg tablet extended release 12 hr 1 tab PO Q12H PRN (Reason: allergy symptoms) Qty: 20 0RF levocetirizine [Xyzal] 5 mg tablet 5 mg PO DAILY 90 Days Qty: 90 1RF Contrave 8-90 mg tablet extended release 2 tab PO BID 30 Days Qty: 120 3RF pantoprazole 20 mg tablet,delayed release (DR/EC) 20 mg PO DAILY Qty: 30 2RF ropinirole 2 mg tablet 2 mg PO DAILY 30 Days Qty: 30 2RF sertraline 100 mg tablet 100 mg PO DAILY Qty: 30 2RF simvastatin 20 mg tablet 20 mg PO .QHS 30 Days Qty: 30 6RF spironolactone 25 mg tablet 25 mg PO DAILY 30 Days Qty: 30 3RF ondansetron 4 mg tablet,disintegrating 4 mg PO Q8H PRN (Reason: nausea and vomiting) (DME) Night Splints See Rx Instructions .Route .MEDSUPPLY Qty: 2 0RF Rx Instructions: As directed albuterol sulfate [Ventolin HFA] 90 mcg/actuation HFA aerosol inhaler 2 puff inhalation 6XD PRN (Reason: shortness of breath or wheezing) Qty: 8.5 8RF budesonide-formoterol [Symbicort] 80-4.5 mcg/actuation HFA aerosol inhaler 1 puff inhalation BID valsartan-hydrochlorothiazide [Diovan HCT] 160-25 mg tablet 1 tab PO BID Qty: 180 2RF amlodipine 5 mg tablet 10 mg PO DAILY Qty: 60 5RF Rx Instructions: If blood pressure is less than 120 systolic, hold amlodipine (DME) HINGED KNEE BRACE See Rx Instructions .Route .MEDSUPPLY Qty: 1 0RF Rx Instructions: As directed hydroxychloroquine 200 mg tablet 200 mg PO BID Qty: 60 3RF prednisone 5 mg tablet See Rx Instructions PO DAILY Qty: 30 0RF Rx Instructions: 1-2 tablet prn orally daily; diclofenac sodium [Arthritis Pain (diclofenac)] 1 % gel 2 g topical QID Qty: 100 0RF Rx Instructions: apply to single elbow, wrist or hand; for hand includes palm/fingers/back of hand (DME) intraoperative Neuromonitoring See Rx Instructions .Route .MEDSUPPLY Qty: 1 0RF Rx Instructions: As directed hydroxyzine pamoate 25 mg capsule 25 mg PO TID Qty: 90 2RF ferrous gluconate 324 mg (38 mg iron) tablet 324 mg PO BID Qty: 60 2RF isosorbide mononitrate 30 mg tablet extended release 24 hr 30 mg PO DAILY Qty: 30 3RF leflunomide 10 mg tablet 10 mg PO DAILY Qty: 30 2RF Discharge Orders: Discharge ED (Routine); Ordered 01/13/23 Ordered By: Marcell Carlisle Referrals: Raquel Banegas NP [Primary Care Provider] - Discharge Diet: Usual diet Discharge Activity: Increase activity as tolerated Patient Instructions: Urinary Tract Infection in Women (ED) Activity Restrictions/Additional Instructions: Hold hydroxyzine for the next 3 to 4 days to help with somnolence, excessive drowsiness, and only use it if needed for anxiety. Continue with Claritin and levocetirizine as prescribed for her allergy symptoms. Use antibiotic as directed for urinary tract infection. Follow-up with primary care for further instructions. Return to ED for new concerns. Coding Level of Care Code ED Obstetrician Gynecologist for Radha Chatterjee
--- NOTE | 2023-01-12 22:26 | XRR_ITS ---
PROCEDURE INFORMATION: Exam: XR Abdomen Exam date and time: 01/12/2023 10:44 PM Age: 42 years old Clinical indication: Constipation and other: Trouble urinating; Prior surgery; Surgery date: 6+ months; Surgery type: Tubal TECHNIQUE: Imaging protocol: Radiologic exam of the abdomen. Views: 2 Views. Upright and supine views. COMPARISON: CT abdomen pelvis w con* [id number] 11/17/2021 4:46 PM FINDINGS: Gastrointestinal tract: Normal. No bowel dilation. Intraperitoneal space: Normal. No free air. Bones/joints: Unremarkable for age. XR/XR acute abdomen series [id number] IMPRESSION: No acute findings.
[2023-01-12 22:52] LABS: Basophils % 0.4 %; Eosinophils % 0.3 %; Hematocrit 38.9 % (37.0-47.0); Hemoglobin 11.7 g/dL (11.5-15.3); Lymphocytes % 10.2 %; Mean Corpuscular HGB Conc 30.1 g/dL (30.0-36.0); Mean Corpuscular Hemoglobin 24.4 pg (28.0-34.0); Mean Platelet Volume 11.3 fL (7.4-10.4); Monocytes # 0.6 10^3/uL (0.2-0.9); Neutrophils # 8.27 10^3/uL (1.8-7.7); Neutrophils % 82.7 %; Nucleated Red Blood Cells % 0 %; Platelet Count 242 10^3/cmm (130-400); Red Cell Distribution Width 16.6 % (12.1-15.1)
[2023-01-12] MEDS: ketorolac 30 mg/mL INJ 15 MG IVP (22:55)
[2023-01-12] MEDS: metoclopramide 5 mg/mL SDV 2 mL 10 MG IVP (22:55)
[2023-01-12 23:07] LABS: HCG, Serum Qual Negative (Negative)
[2023-01-12 23:12] VITALS: BP 140/82; PULSE 98; O2SAT 100
[2023-01-12 23:13] LABS: Alanine Aminotransferase 11 U/L (0-33); Albumin Level 3.6 g/dL (3.5-5.2); Alkaline Phosphatase 94 U/L (35-105); Anion Gap 11.6 (5-19); Aspartate Amino Transferase 10 U/L (0-32); Blood Urea Nitrogen 7 mg/dL (6-20); Calcium 8.5 mg/dL (8.5-10.5); Carbon Dioxide 29 mmol/L (22-29); Chloride 99 mmol/L (98-107); Globulin 3.2 g/dL (1.3-4.6); Glucose 106 mg/dL (65-115); Lipase 17 U/L (13-60); Osmolality Calculated 280 mOsm/kg (285-295); Potassium 3.6 mmol/L (3.5-5.1); Sodium 136 mmol/L (136-145); Total Bilirubin 0.3 mg/dL (0.15-1.2); Total Protein 6.8 g/dL (6.6-8.7)
[2023-01-12 23:56] LABS: Add Urine Microscopic? YES; Bilirubin Urine Neg (Negative); Blood Urine 3+ (Negative); Glucose Urine UA Norm (Normal); Ketones Urine Negative (Negative); Leukocyte Esterase Urine 2+ (Negative); Nitrate Urine Positive (Negative); Protein Urine 2+ (Negative); Urine Appearance Cloudy (CLEAR); Urine Color Yellow (Yellow); Urobilinogen Urine 1 mg/dL (Negative); pH Urine 6 (5-7)
[2023-01-12 23:57] LABS: Add Urine Culture? Yes; Bacteria Urine 3+ /hpf; RBC Urine 40-50 /hpf (0-2); Squamous Epithelial Cell Urine 0-4 /hpf (0-5); WBC Urine >100 /hpf (0-5)
[2023-01-13 00:12] VITALS: BP 122/54; PULSE 90; RESP 18; O2SAT 99
[2023-01-13] MEDS: cefTRIAXone 1,000 MG in sodium chloride 0.9% (plus) 50 ML 100 MG IV (00:13)
[2023-01-13 00:40] VITALS: BP 126/65; PULSE 89; RESP 14; O2SAT 96
== END 2023-01-13 00:44 | disposition home or self-care (01) ==
PROVIDERS: Emergency Provider Nurse Practitioner Family; PCP Nurse Practitioner Family
DX: N39.0 Urinary tract infection, site not specified (principal); B95.2 Enterococcus as the cause of diseases classified elsewhere; I10 Essential (primary) hypertension
CPT/HCPCS: 36415; 51798; 74022; 80053; 81001; 83690; 84703; 85025; 87077; 87086; 87186; 96365; 96375; 99284; J0696; J1885; J2765

== ENCOUNTER → 2023-01-20 11:57 | Outpatient (BNVA) | payer MEDICAID, SELFPAY | PROVIDERS: PCP Nurse Practitioner Family; Visit Provider Nurse Practitioner Family | DX: N39.0 Urinary tract infection, site not specified (principal); B95.2 Enterococcus as the cause of diseases classified elsewhere; M79.89 Other specified soft tissue disorders; E66.01 Morbid (severe) obesity due to excess calories; Z68.42 Body mass index [BMI] 45.0-49.9, adult; N39.3 Stress incontinence (female) (male); R60.9 Edema, unspecified; H92.09 Otalgia, unspecified ear; G89.29 Other chronic pain; D50.9 Iron deficiency anemia, unspecified; I10 Essential (primary) hypertension; E61.1 Iron deficiency; R53.83 Other fatigue | CPT/HCPCS: 80053; 82607; 82746; 83550 ==

== ENCOUNTER → 2023-04-01 14:59 | Outpatient (BNVA) | payer MEDICAID, SELFPAY | PROVIDERS: PCP Nurse Practitioner Family; Visit Provider Nurse Practitioner Family | DX: E78.5 Hyperlipidemia, unspecified (principal); R73.9 Hyperglycemia, unspecified; F41.8 Other specified anxiety disorders; I10 Essential (primary) hypertension; K04.7 Periapical abscess without sinus; M19.90 Unspecified osteoarthritis, unspecified site; N39.3 Stress incontinence (female) (male); K21.9 Gastro-esophageal reflux disease without esophagitis; G25.81 Restless legs syndrome; M79.89 Other specified soft tissue disorders; J30.2 Other seasonal allergic rhinitis; M47.816 Spondylosis without myelopathy or radiculopathy, lumbar region; E66.01 Morbid (severe) obesity due to excess calories; Z68.42 Body mass index [BMI] 45.0-49.9, adult; N39.46 Mixed incontinence | CPT/HCPCS: 80053; 80061; 82785; 86003 ==

== ENCOUNTER 2023-05-02 14:41 | Emergency (ER) | payer MEDICAID, SELFPAY ==
[2023-05-02 14:52] VITALS: BP 138/92; PULSE 82; RESP 15; TEMP 36.7; O2SAT 97
--- NOTE | 2023-05-02 15:15 | ED_ITS ---
Documented by User: Russ Arredondo MD 05/03/23 00:29 HPI - Abdominal Pain General: Chief Complaint: Abdominal Pain Stated Complaint: abd pain, loose black stool, possible MHE Time Seen by Provider: 05/02/23 15:15 History of Present Illness: 43-year-old female presents emergency department complaints of generalized abdominal pain for the previous 3 to 4 days. She states she is also had a cough for many many years and has had COVID 2 times. She states over the previous 4 days she has had soft stool and bowel movements. She states her pain is vague and she is unable to describe it she states that she currently has 3-4 out of 10 generalized pain. She denies vomiting but does endorse nausea. She states she has been feeling like she has had increased fatigue and malaise over the same duration of time and she states the last time she felt like this she had a urinary tract infection. Associated Symptoms: Reports diarrhea and nausea Review of Systems GI: Reports: abdominal pain, nausea and diarrhea [facility] ED PFSH: Medical History Acid reflux Anxiety with depression BMI 45.0-49.9, adult Chronic inflammatory arthritis Complex renal cyst Essential hypertension Lumbago Osteoarthritis Radiculopathy, lumbar region Restless leg Surgical History History of tubal ligation Family History Father , AT AGE 70 Cancer Chronic kidney disease (CKD) Diabetes Hypertension Mother Diabetes Lung disease Brother COPD (chronic obstructive pulmonary disease) Denies family history of Suicide Stroke Social History Smoking and tobacco/nicotine status: never used tobacco/nicotine Second hand smoke exposure: No Alcohol intake: current Alcohol intake frequency: holidays/special occasions only Substance/Drug Use: unknown Adopted: No Caregiver/support person: No Lives independently: Yes Household members: none Housing: House Marital status: Number of children: 3 Highest education level completed: Some College, No Degree service: No Current occupational status: unemployed and disabled Pets and animals: Yes Do you think of yourself as: Straight/Heterosexual Current gender identity: Female Physical Exam Narrative: EXAM NARRATIVE: Constitutional: the patient appeared well nourished and normally developed. Vital signs as documented. HENMT: Head exam is unremarkable. Neck is without jugular venous distension, thyromegaly, or carotid bruits. Moya tid upstrokes are brisk bilaterally. Eye: No scleral icterus or corneal arcus noted Resp: Lungs are clear to auscultation and percussion. Cardio: Cardiac exam reveals the PMI to be normally sized and situated. Rhythm is regular. First and second heart sounds normal. No murmurs, rubs or gallops. GI: Abdominal exam reveals normal bowel sounds, no masses, no organomegaly and no aortic enlargement. Soft, nontender to palpation. No obvious palpable masses noted. No hepatomegaly appreciated. Extremity: Extremities are non-edematous and both femoral and pedal pulses are normal. Moves all extremities well, she has sensation in all extremities. Neuro: Alert and oriented x4, person, place, time and situation. Cranial nerves II through XII are grossly intact, there is no focal neurological deficits that I can appreciate at present. Motor strength in the upper and lower extremities are equal and bilateral 5/5. Psych: Cooperative, calm, normal thought process, appropriate judgment. Skin: No lesions, rashes. Course Vital Signs: Vital signs: Vital Signs Temperature 98.1 F 05/02/23 14:52 Pulse Rate 76 05/02/23 18:06 Respiratory Rate 37 H 05/02/23 18:06 Blood Pressure 127/66 05/02/23 18:06 Pulse Oximetry 97 05/02/23 18:06 Oxygen Delivery Me thod Room Air 05/02/23 18:06 MDM - Abdominal Pain Medical Decision Making Physical exam completed and documented, laboratory evaluation obtained I suspect most likely this is a gastroenteritis given her vague reports of nausea vomiting abdominal pain. I will obtain a CBC, CMP urinalysis influenza a and B screen as well as a COVID 19 screen. Medical Records I reviewed the patient's medical records. Lab Data I reviewed the patient's lab results. 05/02/23 15:45 05/02/23 15:45 Labs/Radiology: Laboratory Results WBC 8.50 10^3/uL (3.29-11.43) 05/02/23 15:45 RBC 5.27 10^6/uL (3.85-5.65) 05/02/23 15:45 Hgb 13.90 g/dL (11.27-16.99) 05/02/23 15:45 Hct 45.8 % (36-47) 05/02/23 15:45 MCV 86.9 fl (85-98) 05/02/23 15:45 MCH 26.4 pg (27-33) L 05/02/23 15:45 MCHC 30.3 g/dL (30-55) 05/02/23 15:45 RDW 15.6 % (12.1-15.1) H 05/02/23 15:45 Plt Count 237 10^3/cmm (157-399) 05/02/23 15:45 MPV 11.3 fL (7.4-10.4) H 05/02/23 15:45 Neut % (Auto) 78.0 % 05/02/23 15:45 Lymph % (Auto) 14.5 % 05/02/23 15:45 Howell % (Auto) 5.4 % 05/02/23 15:45 Eos % (Auto) 1.1 % 05/02/23 15:45 Baso % (Auto) 0.6 % 05/02/23 15:45 Neut # (Auto) 6.64 10^3/uL (1.8-7.7) 05/02/23 15:45 Lymph # (Auto) 1.2 10^3/uL (0.8-4.8) 05/02/23 15:45 Howell # (Auto) 0.5 10^3/uL (0.2-0.9) 05/02/23 15:45 Eos # (Auto) 0.1 10^3/uL (0.0-0.8) 05/02/23 15:45 Baso # (Auto) 0.1 10^3/uL (0.0-0.1) 05/02/23 15:45 Nucleated RBC % (auto) 0 % 05/02/23 15:45 Nucleated RBCs # 0.0 /100WBC 05/02/23 15:45 Sodium 140 mmol/L (136-145) 05/02/23 15:45 Potassium 3.7 mmol/L (3.5-5.1) 05/02/23 15:45 Chloride 104 mmol/L (98-107) 05/02/23 15:45 Carbon Dioxide 27 mmol/L (22-29) 05/02/23 15:45 Anion Gap 12.7 (5-19) 05/02/23 15:45 BUN 6 mg/dL (6-20) 05/02/23 15:45 Creatinine 0.5 mg/dL (0.5-0.9) 05/02/23 15:45 GFR Calculation 133.4 mL/min (90-130) H 05/02/23 15:45 Glucose 114 mg/dL (65-115) 05/02/23 15:45 Calculated Osmolality 288 mOsm/kg (285-295) 05/02/23 15:45 Calcium 9.3 mg/dL (8.5-10.5) 05/02/23 15:45 Total Bilirubin 0.2 mg/dL (0.15-1.2) 05/02/23 15:45 AST 11 U/L (0-32) 05/02/23 15:45 ALT 13 U/L (0-33) 05/02/23 15:45 Alkaline Phosphatase 102 U/L (35-105) 05/02/23 15:45 Total Protein 7.1 g/dL (6.6-8.7) 05/02/23 15:45 Albumin 3.9 g/dL (3.5-5.2) 05/02/23 15:45 Globulin 3.2 g/dL (1.3-4.6) 05/02/23 15:45 Lipase 19 U/L (13-60) 05/02/23 15:45 HCG, Qual Negative (Negative) 05/02/23 16:05 Urine Color Dark yellow (Yellow) 05/02/23 16:05 Urine Appearance Clear (CLEAR) 05/02/23 16:05 Urine pH 5 (5-7) 05/02/23 16:05 Ur Specific [place]burn 1.025 (1.005-1.030) 05/02/23 16:05 Urine Protein Neg (Negative) 05/02/23 16:05 Urine Glucose (UA) Norm (Normal) 05/02/23 16:05 Urine Ketones Negative (Negative) 05/02/23 16:05 Urine Blood Neg (Negative) 05/02/23 16:05 Urine Nitrate Negative (Negative) 05/02/23 16:05 Urine Bilirubin Neg (Negative) 05/02/23 16:05 Urine Urobilinogen Norm mg/dL (Negative) 05/02/23 16:05 Ur Leukocyte Esterase Negative (Negative) 05/02/23 16:05 Influenza Type A Ag negative (Negative) 05/02/23 16:16 Influenza Type B Ag negative (Negative) 05/02/23 16:16 SARS-CoV-2 Ag (Rapid) negative (Negative) 05/02/23 16:16 No radiology studies performed this visit Discharge Plan Discharge Patient Disposition: Home Clinical Impression: Abdominal pain, Viral gastroenteritis Condition: Stable Prescriptions: No Action Saccharomyces boulardii [Daily Probiotic (S. boulardii)] 250 mg capsule 250 mg PO BID topiramate [Topamax] 25 mg tablet 25 mg PO BID 90 Days Qty: 180 0RF Claritin-D 12 Hour 5-120 mg tablet extended release 12 hr 1 tab PO Q12H PRN (Reason: allergy symptoms) Qty: 20 0RF hydroxyzine pamoate 25 mg capsule 25 mg PO TID Qty: 90 2RF oxybutynin chloride 5 mg tablet 5 mg PO BID 30 Days Qty: 60 3RF pantoprazole 20 mg tablet,delayed release (DR/EC) 20 mg PO DAILY Qty: 30 3RF simvastatin 20 mg tablet 20 mg PO .QHS 30 Days Qty: 30 3RF spironolactone 25 mg tablet 25 mg PO BID 30 Days Qty: 60 3RF (DME) Night Splints See Rx Instructions .Route .MEDSUPPLY Qty: 2 0RF Rx Instructions: As directed albuterol sulfate [Ventolin HFA] 90 mcg/actuation HFA aerosol inhaler 2 puff inhalation 6XD PRN (Reason: shortness of breath or wheezing) Qty: 8.5 8RF amlodipine 5 mg tablet 10 mg PO DAILY Qty: 60 5RF Rx Instructions: If blood pressure is less than 120 systolic, hold amlodipine (DME) HINGED KNEE BRACE See Rx Instructions .Route .MEDSUPPLY Qty: 1 0RF Rx Instructions: As directed nitroglycerin 0.4 mg tablet, sublingual 0.4 mg sublingual Q5M PRN (Reason: chest pain) 30 Days Qty: 30 3RF Rx Instructions: until response; do not exceed 3 doses per episode leflunomide 20 mg tablet 20 mg PO DAILY Qty: 30 2RF hydroxychloroquine 200 mg tablet 200 mg PO BID Qty: 60 2RF diclofenac sodium [Arthritis Pain (diclofenac)] 1 % gel 2 g topical QID Qty: 100 0RF Rx Instructions: apply to single elbow, wrist or hand; for hand includes palm/fingers/back of hand (DME) intraoperative Neuromonitoring See Rx Instructions .Route .MEDSUPPLY Qty: 1 0RF Rx Instructions: As directed ferrous gluconate 324 mg (38 mg iron) tablet 324 mg PO BID Qty: 60 2RF bupropion HCl 150 mg tablet extended release 24 hr 150 mg PO DAILY 30 Days Qty: 30 2RF Hair,Skin and Nails Tablet 1 tab PO DAILY 28 mg iron- 800 mcg Tablet 1 tab PO DAILY isosorbide mononitrate 30 mg tablet extended release 24 hr 30 mg PO DAILY sertraline 100 mg tablet 100 mg PO DAILY prednisone 5 mg tablet 5 - 10 mg PO DAILY PRN (Reason: Shortness Of Breath) ropinirole 2 mg tablet 2 mg PO DAILY valsartan-hydrochlorothiazide 160-25 mg tablet 1 tab PO DAILY Symbicort 160-4.5 mcg/actuation HFA aerosol inhaler 2 inh inhalation Q12H Discharge Orders: Discharge ED (Routine); Ordered 05/02/23 Ordered By: Russ Arredondo Referrals: Raquel Banegas, PONDMAN [Primary Care Provider] - Discharge Diet: Advance as tolerated Discharge Activity: Resume usual activity Patient Instructions: Abdominal Pain (ED), Opioid Safety, Pain Management Activity Restrictions/Additional Instructions: Activity Restrictions/Additional Instructions: Thank you for choosing [facility] for your healthcare needs today. Please realize that you were seen in the Emergency Department and that we are providing you with an emergency medical screening exam and this may not be complete and all inclusive of all the testing and or medical work-up that you may need to determine your ailment or severity of your illness. It is very important that you follow-up as instructed with your Primary care provider or Specialist for additional evaluation and to discuss your medical treatment plan. You may return to the Emergency Department should you have concerns or if your condition changes or worsens in any way. Coding Level of Care Code ED Abrasive Water Jet Cutter Operator for Chg Fwd Documented by User: Tom Zazueta DO 05/03/23 06:53 HPI - Abdominal Pain General: Chief Complaint: Abdominal Pain Stated Complaint: abd pain, loose black stool, possible MHE Time Seen by Provider: 05/02/23 15:15 Source: patient Mode of arrival: ambulatory History of Present Illness: MD elicited complaint: abdominal pain PFSH ED PFSH: Medical History Acid reflux Anxiety with depression BMI 45.0-49.9, adult Chronic inflammatory arthritis Complex renal cyst Essential hypertension Lumbago Osteoarthritis Radiculopathy, lumbar region Restless leg Surgical History History of tubal ligation Family History Father , AT AGE 70 Cancer Chronic kidney disease (CKD) Diabetes Hypertension Mother Diabetes Lung disease Brother COPD (chronic obstructive pulmonary disease) Denies family history of Suicide Stroke Social History Smoking and tobacco/nicotine status: never used tobacco/nicotine Second hand smoke exposure: No Alcohol intake: current Alcohol intake frequency: holidays/special occasions only Substance/Drug Use: unknown Adopted: No Caregiver/support person: No Lives independently: Yes Household members: none Housing: House Marital status: Number of children: 3 Highest education level completed: Some College, No Degree service: No Current occupational status: unemployed and disabled Pets and animals: Yes Do you think of yourself as: Straight/Heterosexual Current gender identity: Female Course Vital Signs: Vital signs: Vital Signs Temperature 98.1 F 05/02/23 14:52 Pulse Rate 76 05/02/23 18:06 Respiratory Rate 37 H 05/02/23 18:06 Blood Pressure 127/66 05/02/23 18:06 Pulse Oximetry 97 05/02/23 18:06 Oxygen Delivery Me thod Room Air 05/02/23 18:06 MDM - Abdominal Pain Lab Data 05/02/23 15:45 05/02/23 15:45 Labs/Radiology: Laboratory Results WBC 8.50 10^3/uL (3.29-11.43) 05/02/23 15:45 RBC 5.27 10^6/uL (3.85-5.65) 05/02/23 15:45 Hgb 13.90 g/dL (11.27-16.99) 05/02/23 15:45 Hct 45.8 % (36-47) 05/02/23 15:45 MCV 86.9 fl (85-98) 05/02/23 15:45 MCH 26.4 pg (27-33) L 05/02/23 15:45 MCHC 30.3 g/dL (30-55) 05/02/23 15:45 RDW 15.6 % (12.1-15.1) H 05/02/23 15:45 Plt Count 237 10^3/cmm (157-399) 05/02/23 15:45 MPV 11.3 fL (7.4-10.4) H 05/02/23 15:45 Neut % (Auto) 78.0 % 05/02/23 15:45 Lymph % (Auto) 14.5 % 05/02/23 15:45 Howell % (Auto) 5.4 % 05/02/23 15:45 Eos % (Auto) 1.1 % 05/02/23 15:45 Baso % (Auto) 0.6 % 05/02/23 15:45 Neut # (Auto) 6.64 10^3/uL (1.8-7.7) 05/02/23 15:45 Lymph # (Auto) 1.2 10^3/uL (0.8-4.8) 05/02/23 15:45 Howell # (Auto) 0.5 10^3/uL (0.2-0.9) 05/02/23 15:45 Eos # (Auto) 0.1 10^3/uL (0.0-0.8) 05/02/23 15:45 Baso # (Auto) 0.1 10^3/uL (0.0-0.1) 05/02/23 15:45 Nucleated RBC % (auto) 0 % 05/02/23 15:45 Nucleated RBCs # 0.0 /100WBC 05/02/23 15:45 Sodium 140 mmol/L (136-145) 05/02/23 15:45 Potassium 3.7 mmol/L (3.5-5.1) 05/02/23 15:45 Chloride 104 mmol/L (98-107) 05/02/23 15:45 Carbon Dioxide 27 mmol/L (22-29) 05/02/23 15:45 Anion Gap 12.7 (5-19) 05/02/23 15:45 BUN 6 mg/dL (6-20) 05/02/23 15:45 Creatinine 0.5 mg/dL (0.5-0.9) 05/02/23 15:45 GFR Calculation 133.4 mL/min (90-130) H 05/02/23 15:45 Glucose 114 mg/dL (65-115) 05/02/23 15:45 Calculated Osmolality 288 mOsm/kg (285-295) 05/02/23 15:45 Calcium 9.3 mg/dL (8.5-10.5) 05/02/23 15:45 Total Bilirubin 0.2 mg/dL (0.15-1.2) 05/02/23 15:45 AST 11 U/L (0-32) 05/02/23 15:45 ALT 13 U/L (0-33) 05/02/23 15:45 Alkaline Phosphatase 102 U/L (35-105) 05/02/23 15:45 Total Protein 7.1 g/dL (6.6-8.7) 05/02/23 15:45 Albumin 3.9 g/dL (3.5-5.2) 05/02/23 15:45 Globulin 3.2 g/dL (1.3-4.6) 05/02/23 15:45 Lipase 19 U/L (13-60) 05/02/23 15:45 HCG, Qual Negative (Negative) 05/02/23 16:05 Urine Color Dark yellow (Yellow) 05/02/23 16:05 Urine Appearance Clear (CLEAR) 05/02/23 16:05 Urine pH 5 (5-7) 05/02/23 16:05 Ur Specific [place] 1.025 (1.005-1.030) 05/02/23 16:05 Urine Protein Neg (Negative) 05/02/23 16:05 Urine Glucose (UA) Norm (Normal) 05/02/23 16:05 Urine Ketones Negative (Negative) 05/02/23 16:05 Urine Blood Neg (Negative) 05/02/23 16:05 Urine Nitrate Negative (Negative) 05/02/23 16:05 Urine Bilirubin Neg (Negative) 05/02/23 16:05 Urine Urobilinogen Norm mg/dL (Negative) 05/02/23 16:05 Ur Leukocyte Esterase Negative (Negative) 05/02/23 16:05 Influenza Type A Ag negative (Negative) 05/02/23 16:16 Influenza Type B Ag negative (Negative) 05/02/23 16:16 SARS-CoV-2 Ag (Rapid) negative (Negative) 05/02/23 16:16 Discharge Plan Discharge Patient Disposition: Home Clinical Impression: Abdominal pain, Viral gastroenteritis Condition: Stable Prescriptions: No Action Saccharomyces boulardii [Daily Probiotic (S. boulardii)] 250 mg capsule 250 mg PO BID topiramate [Topamax] 25 mg tablet 25 mg PO BID 90 Days Qty: 180 0RF Claritin-D 12 Hour 5-120 mg tablet extended release 12 hr 1 tab PO Q12H PRN (Reason: allergy symptoms) Qty: 20 0RF hydroxyzine pamoate 25 mg capsule 25 mg PO TID Qty: 90 2RF oxybutynin chloride 5 mg tablet 5 mg PO BID 30 Days Qty: 60 3RF pantoprazole 20 mg tablet,delayed release (DR/EC) 20 mg PO DAILY Qty: 30 3RF simvastatin 20 mg tablet 20 mg PO .QHS 30 Days Qty: 30 3RF spironolactone 25 mg tablet 25 mg PO BID 30 Days Qty: 60 3RF (DME) Night Splints See Rx Instructions .Route .MEDSUPPLY Qty: 2 0RF Rx Instructions: As directed albuterol sulfate [Ventolin HFA] 90 mcg/actuation HFA aerosol inhaler 2 puff inhalation 6XD PRN (Reason: shortness of breath or wheezing) Qty: 8.5 8RF amlodipine 5 mg tablet 10 mg PO DAILY Qty: 60 5RF Rx Instructions: If blood pressure is less than 120 systolic, hold amlodipine (DME) HINGED KNEE BRACE See Rx Instructions .Route .MEDSUPPLY Qty: 1 0RF Rx Instructions: As directed nitroglycerin 0.4 mg tablet, sublingual 0.4 mg sublingual Q5M PRN (Reason: chest pain) 30 Days Qty: 30 3RF Rx Instructions: until response; do not exceed 3 doses per episode leflunomide 20 mg tablet 20 mg PO DAILY Qty: 30 2RF hydroxychloroquine 200 mg tablet 200 mg PO BID Qty: 60 2RF diclofenac sodium [Arthritis Pain (diclofenac)] 1 % gel 2 g topical QID Qty: 100 0RF Rx Instructions: apply to single elbow, wrist or hand; for hand includes palm/fingers/back of hand (DME) intraoperative Neuromonitoring See Rx Instructions .Route .MEDSUPPLY Qty: 1 0RF Rx Instructions: As directed ferrous gluconate 324 mg (38 mg iron) tablet 324 mg PO BID Qty: 60 2RF bupropion HCl 150 mg tablet extended release 24 hr 150 mg PO DAILY 30 Days Qty: 30 2RF Hair,Skin and Nails Tablet 1 tab PO DAILY 28 mg iron- 800 mcg Tablet 1 tab PO DAILY isosorbide mononitrate 30 mg tablet extended release 24 hr 30 mg PO DAILY sertraline 100 mg tablet 100 mg PO DAILY prednisone 5 mg tablet 5 - 10 mg PO DAILY PRN (Reason: Shortness Of Breath) ropinirole 2 mg tablet 2 mg PO DAILY valsartan-hydrochlorothiazide 160-25 mg tablet 1 tab PO DAILY Symbicort 160-4.5 mcg/actuation HFA aerosol inhaler 2 inh inhalation Q12H Discharge Orders: Discharge ED (Routine); Ordered 05/02/23 Ordered By: Russ Arredondo Referrals: Raquel Banegas NP [Primary Care Provider] - Discharge Diet: Advance as tolerated Discharge Activity: Resume usual activity Patient Instructions: Abdominal Pain (ED), Opioid Safety, Pain Management Activity Restrictions/Additional Instructions: Activity Restrictions/Additional Instructions: Thank you for choosing [facility] for your healthcare needs today. Please realize that you were seen in the Emergency Department and that we are providing you with an emergency medical screening exam and this may not be complete and all inclusive of all the testing and or medical work-up that you may need to determine your ailment or severity of your illness. It is very important that you follow-up as instructed with your Primary care provider or Specialist for additional evaluation and to discuss your medical treatment plan. You may return to the Emergency Department should you have concerns or if your condition changes or worsens in any way. Coding Level of Care Code ED Abrasive Water Jet Cutter Operator for Radha Chatterjee
[2023-05-02 16:04] LABS: Basophils # 0.1 10^3/uL (0.0-0.1); Basophils % 0.6 %; Eosinophils # 0.1 10^3/uL (0.0-0.8); Eosinophils % 1.1 %; Hematocrit 45.8 % (36-47); Lymphocytes # 1.2 10^3/uL (0.8-4.8); Lymphocytes % 14.5 %; Mean Corpuscular HGB Conc 30.3 g/dL (30-55); Mean Corpuscular Hemoglobin 26.4 pg (27-33); Mean Corpuscular Volume 86.9 fl (85-98); Mean Platelet Volume 11.3 fL (7.4-10.4); Monocytes # 0.5 10^3/uL (0.2-0.9); Monocytes % 5.4 %; Neutrophils # 6.64 10^3/uL (1.8-7.7); Nucleated Red Blood Cells % 0 %; Platelet Count 237 10^3/cmm (157-399); Red Blood Count 5.27 10^6/uL (3.85-5.65); Red Cell Distribution Width 15.6 % (12.1-15.1)
[2023-05-02 16:11] VITALS: BP 133/93; PULSE 78; RESP 18; O2SAT 97
[2023-05-02 16:25] LABS: Add Urine Microscopic? NO; Charge for UA Resulting for Rev
[2023-05-02 16:27] LABS: Alanine Aminotransferase 13 U/L (0-33); Albumin Level 3.9 g/dL (3.5-5.2); Alkaline Phosphatase 102 U/L (35-105); Anion Gap 12.7 (5-19); Aspartate Amino Transferase 11 U/L (0-32); Blood Urea Nitrogen 6 mg/dL (6-20); Calcium 9.3 mg/dL (8.5-10.5); Carbon Dioxide 27 mmol/L (22-29); Chloride 104 mmol/L (98-107); Creatinine Clr Calc Pharmacy 193.7605; Globulin 3.2 g/dL (1.3-4.6); Glomerular Filtration Rate 133.4 mL/min (90-130); Glucose 114 mg/dL (65-115); Lipase 19 U/L (13-60); Osmolality Calculated 288 mOsm/kg (285-295); Potassium 3.7 mmol/L (3.5-5.1); Sodium 140 mmol/L (136-145); Total Bilirubin 0.2 mg/dL (0.15-1.2); Total Protein 7.1 g/dL (6.6-8.7)
[2023-05-02 16:35] LABS: Bilirubin Urine Neg (Negative); Blood Urine Neg (Negative); Glucose Urine UA Norm (Normal); HCG Qualitative Urine. Negative (Negative); Ketones Urine Negative (Negative); Leukocyte Esterase Urine Negative (Negative); Nitrate Urine Negative (Negative); Protein Urine Neg (Negative); Specific Gravity, Urine 1.025 (1.005-1.030); Urine Appearance Clear (CLEAR); Urine Color Dark Yellow (Yellow); Urobilinogen Urine Norm (Negative); pH Urine 5 (5-7)
[2023-05-02 16:42] LABS: SARS Covid-2 Antigen negative (Negative)
[2023-05-02 16:43] LABS: Influenza A by IFA negative (Negative); Influenza B by IFA negative (Negative)
[2023-05-02 17:25] VITALS: BP 127/76; PULSE 77; RESP 18; O2SAT 95
[2023-05-02 18:06] VITALS: BP 127/66; PULSE 76; RESP 37; O2SAT 97
== END 2023-05-02 18:19 | disposition home or self-care (01) ==
PROVIDERS: Emergency Provider Internal Medicine; PCP Nurse Practitioner Family
DX: A08.4 Viral intestinal infection, unspecified (principal); Z11.52 Encounter for screening for COVID-19; I10 Essential (primary) hypertension
CPT/HCPCS: 80053; 81003; 81025; 83690; 85025; 87426; 87804; 99283

== ENCOUNTER → 2023-06-10 16:10 | Outpatient (BNVA) | payer MEDICAID, SELFPAY | PROVIDERS: PCP Nurse Practitioner Family; Visit Provider Nurse Practitioner Family | DX: Z20.822 Contact with and (suspected) exposure to COVID-19 (principal); M19.90 Unspecified osteoarthritis, unspecified site; J06.9 Acute upper respiratory infection, unspecified; J01.00 Acute maxillary sinusitis, unspecified; J32.0 Chronic maxillary sinusitis; M15.9 Polyosteoarthritis, unspecified | CPT/HCPCS: 87486; 87581; 87633 ==

== ENCOUNTER → 2023-08-13 13:02 | Outpatient (BNVA) | payer MEDICAID, SELFPAY | PROVIDERS: PCP Nurse Practitioner Family; Visit Provider Nurse Practitioner Family | DX: K59.09 Other constipation (principal); Z12.11 Encounter for screening for malignant neoplasm of colon; M47.816 Spondylosis without myelopathy or radiculopathy, lumbar region; M54.41 Lumbago with sciatica, right side; M54.42 Lumbago with sciatica, left side; G89.29 Other chronic pain; M19.90 Unspecified osteoarthritis, unspecified site; I10 Essential (primary) hypertension; E78.5 Hyperlipidemia, unspecified; Z68.42 Body mass index [BMI] 45.0-49.9, adult; F41.8 Other specified anxiety disorders; R73.9 Hyperglycemia, unspecified; N39.3 Stress incontinence (female) (male); K21.9 Gastro-esophageal reflux disease without esophagitis; G25.81 Restless legs syndrome; M79.89 Other specified soft tissue disorders; E78.2 Mixed hyperlipidemia; M47.26 Other spondylosis with radiculopathy, lumbar region; Z79.899 Other long term (current) drug therapy | CPT/HCPCS: 80053; 80061; 83036; 84443; 85025 ==

== ENCOUNTER 2023-11-07 11:36 | Emergency (ER) | payer MEDICAID, SELFPAY ==
[2023-11-07 12:03] VITALS: BP 151/87; PULSE 86; RESP 18; TEMP 36.8; O2SAT 97
--- NOTE | 2023-11-07 12:16 | XRR_ITS ---
PROCEDURE INFORMATION: Exam: XR Left Foot Exam date and time: 11/07/2023 12:22 PM Age: 43 years old Clinical indication: Pain; Foot; Left; Additional info: L foot pain TECHNIQUE: Imaging protocol: Radiologic exam of the left foot. Views: 1 or 2 views. COMPARISON: CR XR ankle LT min 3V* [id number] 11/07/2023 12:21 PM FINDINGS: Bones/joints: Small anterior osteophytes at the level of distal tibia anteriorly. No acute fracture or dislocation. Soft tissues: Soft tissue swelling around the ankle. Soft tissue swelling in dorsum of the foot. XR/XR foot LT 2V [id number] IMPRESSION: No acute fracture or dislocation identified.
--- NOTE | 2023-11-07 12:16 | XRR_ITS ---
PROCEDURE INFORMATION: Exam: XR Left Ankle Exam date and time: 11/07/2023 12:21 PM Age: 43 years old Clinical indication: Pain; Ankle; Left; Additional info: L ankle pain TECHNIQUE: Imaging protocol: Radiologic exam of the left ankle. Views: 3 or more views. COMPARISON: CR XR ankle LT min 3V* [id number] 04/04/2022 12:33 PM FINDINGS: Bones/joints: No acute fracture or dislocation identified. Ankle mortise show normal appearance. Minimal osteo arthritic changes noted. Soft tissues: Soft tissue swelling primarily along the lateral aspect noted. XR/XR ankle LT min 3V* [id number] IMPRESSION: No acute fracture or dislocation identified. Recommend Follow-up radiograph in 7-10 days if symptoms persist.
--- NOTE | 2023-11-07 12:17 | W.ED.EXTPRO ---
HPI - Extremity Problem General: Chief complaint: Extremity Injury, Lower Stated complaint: left foot pain Time Seen by Provider: 11/07/23 12:03 Source: patient Mode of arrival: wheelchair History of Present Illness: Patient arrived POV. Reports she cannot bear weight on her left foot. At rest there is no pain but anytime she bears weight or even hangs it off the bed there is severe pain going from her ankle wrapping around laterally to the foot. She struggles with some numbness and difficulty to proprioception at baseline. Believes the injury occurred last night while letting out her dogs. Dropped a stick and so since her left foot was injured she could not,. Till this morning. Review of Systems General: Reports: 10 or more systems reviewed and unremarkable except in HPI and below PFSH ED PFSH: Medical History Lumbago Complex renal cyst Radiculopathy, lumbar region Acid reflux Restless leg BMI 45.0-49.9, adult Essential hypertension Anxiety with depression Osteoarthritis Chronic inflammatory arthritis Surgical History History of tubal ligation Family History Father , AT AGE 70 Cancer Chronic kidney disease (CKD) Diabetes Hypertension Mother Diabetes Lung disease Brother COPD (chronic obstructive pulmonary disease) Denies family history of Suicide Stroke Social History Smoking and tobacco/nicotine status: never used tobacco/nicotine Second hand smoke exposure: No Alcohol intake: current Alcohol intake frequency: holidays/special occasions only Substance/Drug Use: unknown Adopted: No Caregiver/support person: No Lives independently: Yes Household members: none Housing: House Marital status: Number of children: 3 Highest education level completed: Some College, No Degree service: No Current occupational status: unemployed and disabled Pets and animals: Yes Do you think of yourself as: Straight/Heterosexual Current gender identity: Female Physical Exam Const: COMMON NORMALS: no acute distress, average body habitus, patient oriented x3, healthy appearing, alert and well nourished GENERAL APPEARANCE: well kempt and well developed Neck/C-Spine: COMMON NORMALS: full ROM Resp: COMMON NORMALS: normal respiratory effort, No retractions and No use of accessory muscles Cardio: COMMON NORMALS: regular rate, regular rhythm, No gallops present (Cardio), No clicks present (Cardio), No murmurs present (Cardio) and No rub (Cardio) RATE: regular rate RHYTHM: regular rhythm PERIPHERAL PULSES: other (Radial pulses 2+ and symmetric) Extremity: COMMON NORMALS: normal to inspection, full ROM, capillary refill normal and no clubbing, cyanosis or edema OTHER: Left ankle and foot with tenderness to palpation laterally and posterior but somewhat minimal though does have issues of radiculopathic pain that may be limiting exam. Patient reports severe pain with tingling at all. Neuro: COMMON NORMALS: patient oriented x3 SENSORIUM/ORIENTATION: Yes alert Psych: APPEARANCE: Yes well kempt Skin: COMMON NORMALS: no rashes or lesions noted, no wounds, turgor normal and no jaundice GENERAL SKIN EXAM: no rashes or lesions noted and turgor normal Course Vital Signs: Vital signs: Vital Signs Temperature 98.3 F 11/07/23 12:03 Pulse Rate 86 11/07/23 12:03 Respiratory Rate 18 11/07/23 12:03 Blood Pressure 151/87 11/07/23 12:03 Pulse Oximetry 97 11/07/23 12:03 Oxygen Delivery Me thod Room Air 11/07/23 12:03 MDM - Extremity (Nontraumatic) Medical Decision Making No fracture seen on x-ray would not pursue reviewed the imaging. Radiology read also reports no fracture. Did counseling specialist patient on stress fracture. Patient to let me know that there will be a stress fracture and that myself and the radiologist are wrong. I tried to explain that they often cannot be seen until a week later due to osteoclast activity. Patient request wheelchair prescription and walking boot. Medical Records I reviewed the patient's medical records. Lab Data I reviewed the patient's lab results. Radiology Impressions Ankle X-Ray 11/07/23 12:16 IMPRESSION: No acute fracture or dislocation identified. Recommend Follow-up radiograph in 7-10 days if symptoms persist. Foot X-Ray 11/07/23 12:16 IMPRESSION: No acute fracture or dislocation identified. All radiology interpretation(s) finalized by discharge Discharge Plan Discharge Patient Disposition: Home Clinical Impression: Left ankle pain, Left ankle sprain, Acute pain of left foot Condition: Stable Prescriptions: No Action Saccharomyces boulardii [Daily Probiotic (S. boulardii)] 250 mg capsule 250 mg PO BID topiramate [Topamax] 25 mg tablet 25 mg PO BID 90 Days Qty: 180 0RF propranolol 20 mg tablet 20 mg PO BID Qty: 60 4RF (DME) Night Splints See Rx Instructions .Route .MEDSUPPLY Qty: 2 0RF Rx Instructions: As directed albuterol sulfate [Ventolin HFA] 90 mcg/actuation HFA aerosol inhaler 2 puff inhalation 6XD PRN (Reason: shortness of breath or wheezing) Qty: 8.5 8RF amlodipine 5 mg tablet 10 mg PO DAILY Qty: 60 5RF Rx Instructions: If blood pressure is less than 120 systolic, hold amlodipine (DME) HINGED KNEE BRACE See Rx Instructions .Route .MEDSUPPLY Qty: 1 0RF Rx Instructions: As directed nitroglycerin 0.4 mg tablet, sublingual 0.4 mg sublingual Q5M PRN (Reason: chest pain) 30 Days Qty: 30 3RF Rx Instructions: until response; do not exceed 3 doses per episode hydroxychloroquine 200 mg tablet 200 mg PO BID Qty: 60 2RF sulfasalazine 500 mg tablet 0.5 g PO BID Qty: 60 3RF Rx Instructions: give with food (meal/snack) bupropion HCl 150 mg tablet extended release 24 hr 150 mg PO DAILY 30 Days Qty: 30 3RF hydroxyzine pamoate 25 mg capsule 25 mg PO TID Qty: 90 2RF oxybutynin chloride 5 mg tablet 5 mg PO BID 30 Days Qty: 60 3RF ropinirole 2 mg tablet 2 mg PO DAILY 30 Days Qty: 30 3RF sertraline 100 mg tablet 100 mg PO DAILY 30 Days Qty: 30 3RF simvastatin 20 mg tablet 20 mg PO .QHS 30 Days Qty: 30 3RF spironolactone 25 mg tablet 25 mg PO BID 30 Days Qty: 60 3RF valsartan-hydrochlorothiazide 160-25 mg tablet 1 tab PO DAILY 30 Days Qty: 30 3RF isosorbide mononitrate 30 mg tablet extended release 24 hr 30 mg PO DAILY 30 Days Qty: 30 1RF ketorolac 10 mg tablet 10 mg PO QID PRN (Reason: pain) 5 Days Qty: 20 0RF Linzess 72 mcg capsule 72 mcg PO DAILY 30 Days Qty: 30 3RF bumetanide 1 mg tablet 1 mg PO BID 30 Days Qty: 60 0RF diclofenac sodium [Arthritis Pain (diclofenac)] 1 % gel 2 g topical QID Qty: 100 0RF Rx Instructions: apply to single elbow, wrist or hand; for hand includes palm/fingers/back of hand (DME) intraoperative Neuromonitoring See Rx Instructions .Route .MEDSUPPLY Qty: 1 0RF Rx Instructions: As directed ferrous gluconate 324 mg (38 mg iron) tablet 324 mg PO BID Qty: 60 2RF pantoprazole 20 mg tablet,delayed release (DR/EC) See Rx Instructions .ROUTE .COMPLEX Qty: 30 3RF Dose Instruction: TAKE ONE TABLET BY MOUTH DAILY Rx Instructions: TAKE ONE TABLET BY MOUTH DAILY 28 mg iron- 800 mcg Tablet 1 tab PO DAILY Symbicort 160-4.5 mcg/actuation HFA aerosol inhaler 2 inh inhalation Q12H Discharge Orders: Discharge ED (Routine); Ordered 11/07/23 Ordered By: Raza Schneider Other Ambulatory Orders: DME: Wheelchair (Order) Location: Patient Preference Ordered By: Raza Schneider Referrals: Raquel Banegas, RAYMOND [Primary Care Provider] - Discharge Diet: Usual diet Discharge Activity: Limit activity as instructed Patient Instructions: Ankle Sprain (ED) Activity Restrictions/Additional Instructions: Follow up with orthopedics within 5-10 days. Coding Level of Care Code ED Supervisor Purification for Radha Chatterjee
[2023-11-07] MEDS: HYDROcodone-acetaminophen 5-325 mg Tablet 1 TAB PO (14:59)
[2023-11-07 15:11] VITALS: BP 156/89; PULSE 91; RESP 18; TEMP 36.8; O2SAT 98
--- NOTE | 2023-11-07 15:16 | PC.NURSE ---
ortho boot was placed on patients left foot. no option to charge for ortho boot on charge list.
== END 2023-11-07 15:01 | disposition home or self-care (01) ==
PROVIDERS: Emergency Provider Emergency Medicine; PCP Nurse Practitioner Family
DX: S93.402A Sprain of unspecified ligament of left ankle, initial encounter (principal); I10 Essential (primary) hypertension; X58.XXXA Exposure to other specified factors, initial encounter
CPT/HCPCS: 73610; 73620; 99283

== ENCOUNTER → 2024-03-23 14:57 | Outpatient (BNVA) | payer MEDICAID, SELFPAY | PROVIDERS: PCP Nurse Practitioner Family; Visit Provider Specialist | DX: G62.89 Other specified polyneuropathies (principal); G43.711 Chronic migraine without aura, intractable, with status migrainosus | CPT/HCPCS: 36415; 82607; 83036; 83520; 86160; 86162; 86235; 86255; 86376 ==

== ENCOUNTER → 2024-11-15 07:47 | Outpatient (BNVA) | payer MEDICARE, MEDICAID, SELFPAY | PROVIDERS: PCP Nurse Practitioner; Visit Provider Podiatrist Foot & Ankle Surgery | DX: S82.302A Unspecified fracture of lower end of left tibia, initial encounter for closed fracture (principal); W19.XXXA Unspecified fall, initial encounter | CPT/HCPCS: 73610; 73620; 99214 ==

== ENCOUNTER 2024-11-15 09:01 | Outpatient (CLI) | payer MEDICARE, MEDICAID, SELFPAY | END 2024-11-15 09:02 | disposition home or self-care (01) | LOC: SPT 09:02 | PROVIDERS: PCP Nurse Practitioner; Visit Provider Podiatrist Foot & Ankle Surgery | DX: Z46.89 Encounter for fitting and adjustment of other specified devices (principal); S82.302D Unspecified fracture of lower end of left tibia, subsequent encounter for closed fracture with routine healing; X58.XXXD Exposure to other specified factors, subsequent encounter | CPT/HCPCS: 97760; L4361 ==

== ENCOUNTER → 2024-11-29 14:29 | Outpatient (BNVA) | payer OTHER, MEDICAID, SELFPAY | PROVIDERS: PCP Nurse Practitioner; Visit Provider Podiatrist Foot & Ankle Surgery | DX: M25.572 Pain in left ankle and joints of left foot (principal); S82.302A Unspecified fracture of lower end of left tibia, initial encounter for closed fracture; X58.XXXA Exposure to other specified factors, initial encounter | CPT/HCPCS: 73610; 99213 ==

== ENCOUNTER → 2024-12-07 10:31 | Outpatient (BNVA) | payer OTHER, MEDICAID, SELFPAY | PROVIDERS: PCP Nurse Practitioner; Visit Provider Podiatrist Foot & Ankle Surgery | DX: M79.672 Pain in left foot (principal); S82.302A Unspecified fracture of lower end of left tibia, initial encounter for closed fracture; X58.XXXA Exposure to other specified factors, initial encounter | CPT/HCPCS: 73630; 99214 ==

== ENCOUNTER 2024-12-22 07:53 | Outpatient (CLI) | payer OTHER, MEDICAID, SELFPAY ==
--- NOTE | 2024-12-22 08:00 | MR_ITS ---
WS: [id number] INDICATION: Stress fracture TECHNIQUE: MRI LEFT foot without gadolinium enhancement. Sagittal T1 STIR coronal PD, coronal T2, sagittal STIR, sagittal T1, axial T1 and axial PD and axial T2 imaging FINDINGS: Normal tarsometatarsal alignment. Metatarsals appear normal in appearance. Normal metatarsal heads. Visualized phalanges appear intact. Soft tissue edema about the foot worse involving the dorsal and plantar surface. Degenerative arthritis involving the tarsal bones and TMT joints. Mild osteopenia. Base of the fifth metatarsal appears normal. Edema involving the lateral aspect of the cuboid may be due to recent trauma with bony contusion versus degenerative arthritis. Recommend correlation with area of pain. Mild degenerative changes involving the IP joints. Normal cuneiforms. Normal navicular. Degenerative arthritis with a small amount of edema and a few small erosions at the first MTP. Degenerative changes involving the base of the fourth and fifth metatarsals with small erosions. Hypertrophic spurring talar neck and talonavicular articulation. Degenerative changes involving the anterior tibial plafond. No visualized acute fractures in this area. Normal bone marrow signal in the visualized talar dome. MR/MR foot LT wo con* [id number] IMPRESSION: No visualized fractures in the anterior tibial plafond. 1. Edema involving the cuboid nonspecific but may be degenerative. Recommend c orrelation for area of trauma or pain. This may be due to bony contusion. 2. Degenerative arthritis first MTP with small erosions. 3. Soft tissue edema involving the dorsal and plantar soft tissues in the midf oot and forefoot. 4. No other acute findings.
== END 2024-12-22 07:54 | disposition home or self-care (01) ==
LOC: RAD 07:54
PROVIDERS: PCP Nurse Practitioner; Visit Provider Podiatrist Foot & Ankle Surgery
DX: M84.375A Stress fracture, left foot, initial encounter for fracture (principal); R60.0 Localized edema; R93.6 Abnormal findings on diagnostic imaging of limbs; M19.072 Primary osteoarthritis, left ankle and foot; M85.872 Other specified disorders of bone density and structure, left ankle and foot; M25.772 Osteophyte, left ankle
CPT/HCPCS: 73718

== ENCOUNTER → 2025-01-19 08:55 | Outpatient (BNVA) | payer OTHER, MEDICAID, SELFPAY | PROVIDERS: PCP Nurse Practitioner Family; Visit Provider Podiatrist Foot & Ankle Surgery | DX: S82.302A Unspecified fracture of lower end of left tibia, initial encounter for closed fracture (principal); X58.XXXA Exposure to other specified factors, initial encounter | CPT/HCPCS: 99213 ==

== ENCOUNTER 2025-01-27 05:00 | Outpatient (RCR) | payer OTHER, MEDICAID, SELFPAY | END 2025-02-26 23:59 | disposition home or self-care (01) | LOC: APT 05:00 | PROVIDERS: Visit Provider Nurse Practitioner Family | DX: M25.511 Pain in right shoulder (principal) | CPT/HCPCS: 97161 ==

== ENCOUNTER → 2025-02-01 12:53 | Outpatient (BNVA) | payer OTHER, MEDICAID, SELFPAY | PROVIDERS: Visit Provider Internal Medicine Rheumatology | DX: M06.041 Rheumatoid arthritis without rheumatoid factor, right hand (principal); M06.042 Rheumatoid arthritis without rheumatoid factor, left hand; Z79.899 Other long term (current) drug therapy; Z71.85 Encounter for immunization safety counseling; N28.1 Cyst of kidney, acquired; R91.1 Solitary pulmonary nodule | CPT/HCPCS: 36415; 80076; 82306; 82565; 82657; 85025; 85651; 86140; 86480; 86704; 86803; 87340; 99215 ==

== ENCOUNTER 2025-02-10 11:05 | Outpatient (CLI) | payer OTHER, MEDICAID, SELFPAY ==
--- NOTE | 2025-02-10 11:00 | CTR_ITS ---
PROCEDURE INFORMATION: Exam: CT Chest Without Contrast; Diagnostic Exam date and time: 02/10/2025 11:15 AM Age: 45 years old Clinical indication: Condition or disease; Lung condition and disease; Pulmonary nodule, solitary; Additional info: R91.1 - solitary pulmonary nodule, patient has history of lung nodules TECHNIQUE: Imaging protocol: Diagnostic computed tomography of the chest without contrast. Radiation optimization: All CT scans at this facility use at least one of these dose optimization techniques: automated exposure control; mA and/or kV adjustment per patient size (includes targeted exams where dose is matched to clinical indication); or iterative reconstruction. COMPARISON: CT chest w con* [id number] 03/18/2022 1:46 PM RADIATION DOSE METRICS: Total DLP (mGy-cm): 692.25 FINDINGS: Lungs: Unremarkable. No consolidation. No masses. No suspicious pulmonary nodules. There are few small perifissural nodules/nodes which are unchanged. Pleural spaces: Unremarkable. No pneumothorax. No pleural effusion. Heart: Unremarkable. No cardiomegaly. No pericardial effusion. No coronary artery calcifications. Lymph nodes: Unremarkable. No enlarged lymph nodes. Vasculature: Unremarkable. No aortic aneurysm. Bones/joints: Unchanged T12 compression deformity. Soft tissues: Unremarkable. CT/CT chest wo con [id number] IMPRESSION: 1. No acute thoracic abnormality. 2. No new or enlarging pulmonary nodules.
== END 2025-02-10 11:06 | disposition home or self-care (01) ==
LOC: RAD 11:06
PROVIDERS: Visit Provider Internal Medicine Rheumatology
DX: R91.1 Solitary pulmonary nodule (principal)
CPT/HCPCS: 71250

== ENCOUNTER → 2025-02-15 10:41 | Outpatient (BNVA) | payer OTHER, MEDICAID, SELFPAY | PROVIDERS: Referring Provider Internal Medicine Rheumatology; Visit Provider Internal Medicine | DX: E88.810 Metabolic syndrome (principal); E66.01 Morbid (severe) obesity due to excess calories; Z68.42 Body mass index [BMI] 45.0-49.9, adult; K76.0 Fatty (change of) liver, not elsewhere classified | CPT/HCPCS: 99204 ==

== ENCOUNTER 2025-02-23 14:19 | Outpatient (CLI) | payer OTHER, MEDICAID, SELFPAY ==
--- NOTE | 2025-02-23 14:10 | MM_ITS ---
WS: [id number] BILATERAL SCREENING DIGITAL TOMOSYNTHESIS MAMMOGRAM WITH CAD HISTORY: SCREENING COMPARISON: 03/14/2022 Bilateral CC and MLO views with tomosynthesis and synthetic mammography submitted. Computer aided detection analyzed. Breast composition: The breasts are almost entirely fatty. No suspicious masses, microcalcifications or architectural distortion. Benign calcifications in each breast. MM/MM scr BI tomosynthesis [id number] IMPRESSION: BI-RADS: 2 - Benign. FOLLOW UP: 1 Year Follow-up
== END 2025-02-23 14:20 | disposition home or self-care (01) ==
LOC: MOBLMAM 14:20
PROVIDERS: PCP Nurse Practitioner Family; Visit Provider Nurse Practitioner Family
DX: Z12.31 Encounter for screening mammogram for malignant neoplasm of breast (principal); R92.313 Mammographic fatty tissue density, bilateral breasts; R92.1 Mammographic calcification found on diagnostic imaging of breast
CPT/HCPCS: 77063; 77067

== ENCOUNTER → 2025-05-15 12:34 | Outpatient (BNVA) | payer MEDICARE, MEDICAID, SELFPAY | PROVIDERS: PCP Nurse Practitioner Family; Visit Provider Nurse Practitioner | DX: M17.12 Unilateral primary osteoarthritis, left knee (principal) | CPT/HCPCS: 73560; 73565 ==

== ENCOUNTER 2025-05-15 14:36 | Outpatient (CLI) | payer MEDICARE, MEDICAID, SELFPAY | END 2025-05-15 14:37 | disposition home or self-care (01) | LOC: SPT 14:40 | PROVIDERS: PCP Nurse Practitioner Family; Visit Provider Nurse Practitioner | DX: Z46.89 Encounter for fitting and adjustment of other specified devices (principal); M17.12 Unilateral primary osteoarthritis, left knee | CPT/HCPCS: L3761 ==